=== PATIENT | female | born 1955 | race Caucasian/White ===

== ENCOUNTER 2017-08-07 11:19 | Inpatient (IN) | payer MEDICAID ==
[~2017-08-07] VITALS: Ht 167.6 cm; Wt 105.3 kg
--- NOTE | 2017-08-07 11:19 | NUR ---
Patient was BIBA and taken to bed 06 via gurney per EMS.
--- NOTE | 2017-08-07 11:20 | NUR ---
SECURITY at bedside.
[2017-08-07 11:24] VITALS: BP 143/90
[2017-08-07] MEDS ORDERED: ONDANSETRON 4 MG ODT PO ONE (11:25)
--- NOTE | 2017-08-07 11:26 | NUR ---
PT BIBA FOR SUICIDAL IDEATION, TOOK 4 600MG IBU AND ATTEMPTED TO CUT MANPREET WRISTS. MEDIC STATES PT WAS RECOVERING ALCOHOLIC AND BEGAN DRINKING AGAIN LAST NOC. PT ON 5150 HOLD PER [facility]OPEN WOUND TO R ABDOMEN & MULTIPLE SUPERFICIAL CUT WOUND TO L WRIST. HX ETOH, DEPRESSION, HYPOTHYROIDISM.AAOX4 WITH EVEN AND STEADY GAIT; LUNGS CLEAR BL; PT DENIES ANY FEVER, CP, SOB, OR COUGH AT THIS TIME; PATIENT STATES PAIN OF 0/10 AT THIS TIME; PATIENT POSITIONED FOR COMFORT; HOB ELEVATED; BEDRAILS UP X2; BED DOWN. ER MADE AWARE OF PT STATUS. Addendum: 08/07/17 at 1416 by MED1 OLD OPENED WOUND TO R ABDOMEN.
--- NOTE | 2017-08-07 11:26 | NUR ---
Note undone in EDM - 08/07/17 at 1411 by MED1 PT BIBA FOR SUICIDAL IDEATION, TOOK 4 600MG IBU AND ATTEMPTED TO CUT MANPREET WRISTS. MEDIC STATES PT WAS RECOVERING ALCOHOLIC AND BEGAN DRINKING AGAIN LAST NOC. PT ON 5150 HOLD PER [facility]OPEN WOUND TO R ABDOMEN & MULTIPLE SUPERFICIAL CUT WOUND TO MANPREET WRIST. HX ETOH, DEPRESSION, HYPOTHYROIDISM.AAOX4 WITH EVEN AND STEADY GAIT; LUNGS CLEAR BL; PT DENIES ANY FEVER, CP, SOB, OR COUGH AT THIS TIME; PATIENT STATES PAIN OF 0/10 AT THIS TIME; PATIENT POSITIONED FOR COMFORT; HOB ELEVATED; BEDRAILS UP X2; BED DOWN. ER MD MADE AWARE OF PT STATUS.
--- NOTE | 2017-08-07 11:32 | NUR ---
LAB AT BEDSIDE
[2017-08-07 11:46] LABS: HEMATOCRIT 39.4 % (36-48); MEAN CORPUSCULAR HEMOGLOBIN 28 pg (27-31); MEAN CORPUSCULAR HGB CONC 33 g/dL (33-37); MEAN CORPUSCULAR VOLUME 86 fL (80-94); PLATELET COUNT (AUTO) 228 K/uL (140-450); RED BLOOD CELL COUNT(AUTO) 4.59 MIL/uL (4.20-5.40); RED CELL DISTRIBUTION WIDTH 13.7 % (11.6-13.7); WHITE BLOOD COUNT (AUTO) 4.7 K/uL (4.8-10.8)
[2017-08-07 12:00] LABS: LYMPHOCYTES % (MANUAL) 33 % (20-46); MONOCYTES % (MANUAL) 3 % (5-12)
[2017-08-07 12:02] LABS: ANION GAP 13.7 (8-16); CARBON DIOXIDE 28.6 mmol/L (21-32); CHLORIDE 104 mmol/L (98-107); CREATININE 0.9 mg/dL (0.6-1.3); GFR ARICAN-AMERICAN 82 mL/min (>90); GLUCOSE 122 mg/dL (74-106); POTASSIUM 3.3 mmol/L (3.5-5.1); SALICYLATE < 2.8 mg/dL (2.8-20.0); SODIUM SERUM 143 mmol/L (136-145); UREA NITROGEN, BLOOD 10 mg/dL (7-18)
[2017-08-07 12:19] LABS: ALBUMIN 3.9 g/dL (3.4-5.0); ASPARTATE AMINOTRANSFERASE 29 U/L (15-37); TOTAL BILIRUBIN 0.8 mg/dL (0.0-1.0)
[2017-08-07 12:37] LABS: ACETAMINOPHEN < 0.5 ug/ml (10-30)
--- NOTE | 2017-08-07 12:38 | NUR ---
# 14 FR Ruiz catheter with 10 ml utilizing sterile technique. Immediate return of 50 ml YELLOW urine noted. Bedside drainage bag placed below level of bladder. Urine sample collected and sent to lab. Pt tolerated procedure.
[2017-08-07 12:48] LABS: CKMB RELATIVE INDEX 1.5 (0.0-2.5); CREATINE KINASE MB 8.2 ng/mL (0-3.6)
[2017-08-07 13:09] LABS: APPEARANCE,URINE CLEAR (CLEAR); BILIRUBIN,URINE NEGATIVE (NEGATIVE); BLOOD, URINE NEGATIVE (NEGATIVE); COLOR,URINE YELLOW (YELLOW); LEUKOCYTE ESTERASE ,URINE NEGATIVE (NEGATIVE); NITRITE, URINE NEGATIVE (NEGATIVE); PH,URINE 6.5 (5.0-9.0); UGLUCOSE NEGATIVE (NEGATIVE)
--- NOTE | 2017-08-07 13:16 | NUR ---
Dr. Matos evaluating patient at bedside.
[2017-08-07 13:20] LABS: RBC,URINE 0-5 (RARE) /HPF (0-5)
[2017-08-07 13:21] LABS: WBC,URINE 0-5 (RARE) /HPF (0-5)
[2017-08-07 13:25] LABS: BARBITURATE, URINE NEG. ng/ml (NEG <=200); BENZODIAZEPINE, URINE NEG. ng/mL (NEG <=200); CANNABINOID, URINE NEG. ng/mL (NEG <=50); COCAINE, URINE NEG. ng/mL (NEG <=300); OPIATE, URINE NEG. ng/mL (NEG <=2000); PHENCYCLIDINE SCREEN,URINE NEG. ng/mL (NEG <=25)
[2017-08-07] MEDS ORDERED: HYDROcodone/APAP 7.5/325 MG 1 TAB PO PRN (13:35)
[2017-08-07] MEDS ORDERED: ACETAMINOPHEN 325 MG TAB PO PRN (13:35)
[2017-08-07] MEDS ORDERED: ONDANSETRON 4 MG/2 ML VIAL IVP PRN (13:35)
[2017-08-07] MEDS ORDERED: KETOROLAC 30 MG/ML VIAL IVP ONE (13:55)
--- NOTE | 2017-08-07 13:55 | NUR ---
PT C/O ABDOMINAL PAIN. NOTIFIED DR JOHNS.
[2017-08-07 14:02] LABS: PROTHROMBIN TIME 10.4 secs (10.8-13.4)
--- NOTE | 2017-08-07 14:05 | NUR ---
PT STS " I WANT SOMETHING FOR ANXIETY". NOTIFIED DR JOHNS.
[2017-08-07] MEDS ORDERED: LORazepam 2 MG/ML VIAL IVP ONE (14:10)
[2017-08-07 14:14] LABS: CHOL/HDL RATIO 4.2 (1-4.5); FREE T4 (FREE THYROXINE) 0.83 ng/dL (0.76-1.46); THYROID STIMULATING HORMONE 10.46 uIU/mL (0.34-3.74)
--- NOTE | 2017-08-07 14:34 | NUR ---
Patient will be admitted to care of DR TORIBIO. Admited to TELE. Will go to [id number]. Belongings list completed. Report to RN MEMI.
[2017-08-07 17:12] VITALS: BP 128/73
[2017-08-07] MEDS ORDERED: INSULIN LISPRO SLIDING SCALE 100 UNITS/ML VIAL SUBQ PRN (17:25)
[2017-08-07] MEDS ORDERED: DEXTROSE 50% 50 ML SYR IVP PRN (17:25)
[2017-08-07] MEDS ORDERED: NITROGLYCERIN 0.4 MG TAB SL PRN (17:30)
[2017-08-07] MEDS: NACL 0.9% 1,000 ML IV SCH (17:51)
[2017-08-07] MEDS ORDERED: CALCIUM ACETATE 667 MG TAB PO SCH (18:00)
[2017-08-07] MEDS: LORazepam 2 MG/ML VIAL IVP PRN (18:11)
--- NOTE | 2017-08-07 18:58 | NUR ---
DAUGHTERS LILY AND DANGELO AT BEDSIDE, THEY REQUESTS TO BE CALLED WHEN PSYCH DOCTOR IS HERE TO SEE PT. ACCORDING TO THE DAUGHTERS, PT HAS HX OF LYING TO GET OUT OF PSYCHIATRIC FACILITY TO ATTEMPT SUICIDE, THEY WOULD LIKE PSYCH TO BE AWARE OF PREVIOUS ATTEMPTS TO GET OUT OF PSYCH TREATMENT SO SHE CAN GO HOME TO KILL HERSELF. LILY [phone], DANGELO [phone].
--- NOTE | 2017-08-07 19:40 | NUR ---
REPORT GIVEN TO CISO NURSE, PT IN STABLE CONDITION.
--- NOTE | 2017-08-07 19:41 | NUR ---
REPORT RECEIVED FROM DAY NURSE. PT IN STABLE CONDITION. NO S/S OF DISTRESS NOTED. NO SUICIDAL IDEATION OR PLAN AT THIS TIME. PT AAOX4. PT IS ON RA, IV TO L FA 20 G PATENT AND INTACT, INFUSING WELL. SUPERFICIAL ABRASION NOTED ON L WRIST AND OPEN WOUND ON RIGHT ABD. RESPIRATIONS ARE EVEN AND UNLABORED, BOWEL SOUNDS PRESENT. INITIAL ASSESSMENT COMPLETED. PLAN OF CARE DISCUSSED WITH PT, VERBALIZED UNDERSTANDING. ALL SAFETY PRECAUTIONS MET, CALL LIGHT WITHIN REACH, WILL CONTINUE TO MONITOR Addendum: 08/08/17 at 0139 by Barbara Medina RN PT HAS SITTER IN PLACE
[2017-08-07] MEDS ORDERED: POTASSIUM CHLORIDE 20% 40 MEQ/15 ML UDC PO SCH (19:50)
--- NOTE | 2017-08-07 19:50 | NUR ---
MADE DR CABRERA AWARE OF PTS POTASSIUM 3.3 WILL CARRY OUT ORDERS. ALSO MADE DR. CABRERA AWARE OF WOUND ON RIGHT ABDOMEN, ORDERS TO BE CARRIED OUT
[2017-08-07 20:00] VITALS: BP 142/72
[2017-08-07] MEDS ORDERED: LORazepam 1 MG TAB PO SCH (21:00)
[2017-08-07] MEDS: DOCUSATE SODIUM 100 MG GELCAP PO SCH (21:06)
[2017-08-07] MEDS: ATORVASTATIN 20 MG TAB PO SCH (21:06)
[2017-08-07] MEDS: METOPROLOL 25 MG TAB PO SCH (21:06)
[2017-08-07] MEDS: BLOOD GLUCOSE MONITORING 1 DEV DEV FS SCH (21:12)
[2017-08-07] MEDS ORDERED: ceFAZolin 1,000 MG VIAL ONE (21:25)
--- NOTE | 2017-08-07 22:30 | NUR ---
PT RECEIVED US OF ABDOMEN TO RULE OUT ABSCESS
[2017-08-07] MEDS ORDERED: POTASSIUM CHLORIDE 10 MEQ TABER PO SCH (23:05)
--- NOTE | 2017-08-07 23:30 | NUR ---
PT RESTING COMFORTABLY IN BED. NO SUICIDAL IDEATION AT THIS TIME, NO PLAN. ALL SAFETY PRECAUTIONS MET, CALL LIGHT WITHIN REACH, WILL CONTINUE TO MONITOR
[2017-08-08] VITALS: BP 137/75
--- NOTE | 2017-08-08 01:38 | NUR ---
PT RESTING COMFORTABLY IN BED, NO SUICIDAL IDEATION OR PLAN AT THIS TIME. ALL SAFETY PRECAUTIONS MET, CALL LIGHT WITHIN REACH, WILL CONTINUE TO MONITOR. PT HAS SITTER IN PLACE
--- NOTE | 2017-08-08 03:30 | NUR ---
NO SUICIDAL IDEATION AT THIS TIME, NO PLAN. PT RESTING COMFORTABLY IN BED. ALL SAFETY PRECAUTIONS MET, CALL LIGHT WITHIN REACH, WILL CONTINUE TO MONITOR
[2017-08-08 04:00] VITALS: BP 139/92
[2017-08-08] MEDS: CLINDAMYCIN 600 MG in DEXTROSE 5% 50 ML IV SCH ×3 (05:04→20:51)
[2017-08-08] MEDS ORDERED: CLINDAMYCIN 600 MG/4 ML VIAL ONE (05:11)
[2017-08-08] MEDS: LEVOTHYROXINE 0.075 MG TAB PO SCH (05:40)
[2017-08-08] MEDS: LORazepam 2 MG/ML VIAL IVP PRN ×3 (05:40→18:10)
[2017-08-08 05:56] LABS: BASOPHILS # (AUTO) 0.2 K/uL (0.00-0.22); BASOPHILS % (AUTO) 4.2 % (0.0-2.0); EOSINOPHILS # (AUTO) 0.1 K/uL (0-0.4); EOSINOPHILS % (AUTO) 1.1 % (0.0-4.0); HEMATOCRIT 37.1 % (36-48); HEMOGLOBIN 12.3 g/dL (12.0-16.0); LYMPHOCYTES # (AUTO) 1.3 K/uL (2.5-16.5); LYMPHOCYTES % (AUTO) 24.8 % (20.5-51.1); MEAN CORPUSCULAR HEMOGLOBIN 29 pg (27-31); MEAN CORPUSCULAR HGB CONC 33 g/dL (33-37); MEAN CORPUSCULAR VOLUME 87 fL (80-94); MONOCYTES # (AUTO) 0.5 K/uL (0.8-1.0); MONOCYTES % (AUTO) 9.7 % (1.7-9.3); NEUTROPHILS % (AUTO) 60.2 % (42.2-75.2); PLATELET COUNT (AUTO) 173 K/uL (140-450); RED BLOOD CELL COUNT(AUTO) 4.29 MIL/uL (4.20-5.40); RED CELL DISTRIBUTION WIDTH 13.7 % (11.6-13.7); WHITE BLOOD COUNT (AUTO) 5.1 K/uL (4.8-10.8)
[2017-08-08 06:18] LABS: ANION GAP 7.9 (8-16); CARBON DIOXIDE 32.4 mmol/L (21-32); CREATININE 0.9 mg/dL (0.6-1.3); POTASSIUM 4.3 mmol/L (3.5-5.1)
[2017-08-08] MEDS: BLOOD GLUCOSE MONITORING 1 DEV DEV FS SCH ×4 (06:36→20:50)
--- NOTE | 2017-08-08 07:16 | NUR ---
GAVE REPORT TO RAIZA RN AT THE BEDSIDE FOR CONTINUITY OF CARE, PT IN STABLE CONDITION. NO S/S OF DISTRESS NOTED.
--- NOTE | 2017-08-08 07:20 | NUR ---
REPORT RECEIVED FROM MANAGER STUDIO EULA RN, PT SLEEPING QUIETLY, RESP EVEN UNLABORED ON ROOM AIR, AROUSES EASILY, DENIES PAIN OR DISCOMFORT, PLAN OF CARE DISCUSSED, PT DENIES ANY QUESTION, PT REMAINS ON REHAB PHYSICIAN, 1:1 SAFETY WATCH AT BEDSIDE, WILL CONTINUE TO MONITOR.
[2017-08-08 08:00] VITALS: BP 138/86
[2017-08-08] MEDS: LACTOBACILLUS RHAMNOSUS GG 1 EACH CAP PO SCH (08:35)
[2017-08-08] MEDS: CALCIUM ACETATE 667 MG TAB PO SCH (08:35)
[2017-08-08] MEDS: metFORMIN 500 MG TAB PO SCH ×2 (08:35→18:06)
[2017-08-08] MEDS: DOCUSATE SODIUM 100 MG GELCAP PO SCH ×2 (08:35→20:51)
[2017-08-08] MEDS: LISINOPRIL 20 MG TAB PO SCH (08:35)
[2017-08-08] MEDS: ASPIRIN 81 MG TAB.CHEW PO SCH (08:35)
[2017-08-08] MEDS: NYSTATIN 500 MU/5 ML UDC PO SCH ×4 (08:36→20:51)
[2017-08-08] MEDS: FOLIC ACID 1 MG TAB PO SCH (08:36)
--- NOTE | 2017-08-08 08:40 | NUR ---
DUE MEDICATION GIVEN, PT EARLINE WELL, PT TEARFUL, STATES SHE FEELS ANXIOUS, TREMORS NOTED IN OUT STRETCHED HANDS, DR SALINAS MADE AWARE, PT ASKS IF HER FAMILY HAS TRIED TO CONTACT HER, USE OF TELEPHONE AND DAUGHTERS PHONE NUMBERS OFFERED BUT PT DECLINED, PT INFORMED THAT PSYCH WILL COME EVALUATE THIS AFTERNOON PER DR PIZARRO'S OFFICE. PT REMAINS ON PUBLIC WORKS SUPERVISOR AND 1:1 WATCH, WILL CONTINUE TO MONITOR.
[2017-08-08] MEDS ORDERED: LISINOPRIL 20 MG TAB PO SCH (09:00)
[2017-08-08] MEDS ORDERED: LISINOPRIL 5 MG TAB PO SCH (09:00)
[2017-08-08] MEDS ORDERED: PANTOPRAZOLE 40 MG INJ VIAL IVP SCH (09:00)
--- NOTE | 2017-08-08 09:14 | NUR ---
PATIENT HAS BEEN SCREENED AND CATEGORIZED MODERATE NUTRITION RISK. PATIENT WILL BE SEEN WITHIN 3-5 DAYS OF ADMISSION. 08/10/17-08/12/[address]
--- NOTE | 2017-08-08 09:40 | NUR ---
PT UP OUT OF BED, AMBULATED WITH SLOW STEADY GAIT, MOVED TO ROOM 109, UPON SITTING DOWN TO BED IN 109, PT C/O DIZZINESS, PT RE-ORIENTED TO ROOM 109, BED LOCKED IN LOW POSITION, SIDE RAILS UP, PT REMAINS ON 1:1 WATCH. WILL CONTINUE TO MONITOR.
[2017-08-08] MEDS: THIAMINE 100 MG TAB PO SCH (09:44)
[2017-08-08] MEDS: MULTIVITAMIN 1 TAB PO SCH (09:44)
[2017-08-08] MEDS: PANTOPRAZOLE 40 MG TABEC PO SCH (09:44)
[2017-08-08] MEDS: METOPROLOL 25 MG TAB PO SCH (09:45)
[2017-08-08] MEDS: NACL 0.9% 1,000 ML IV SCH (09:46)
--- NOTE | 2017-08-08 10:01 | NUR ---
CM AT BEDSIDE
--- NOTE | 2017-08-08 10:48 | NUR ---
DAUGHTER AT BEDSIDE.
--- NOTE | 2017-08-08 11:13 | NUR ---
ECHOCARDIOGRAM AT BEDSIDE.
[2017-08-08 12:00] VITALS: BP 147/80
[2017-08-08] MEDS: LORazepam 1 MG TAB PO SCH ×2 (12:11→20:51)
--- NOTE | 2017-08-08 12:13 | NUR ---
DUE MEDS GIVEN, PT EARLINE WELL, PT REMAINS ON MOBILE LAB TECHNICIAN, 1:1 SITTER AT BEDSIDE WILL CONTINUE TO MONITOR.
--- NOTE | 2017-08-08 12:30 | NUR ---
LEE DC'D PER ORDER, 9.5ML WATER REMOVED FROM BALLOON, CATH TIP INTACT, PT EARLINE WELL, 300ML ORANGE COLOR URINE DRAINED.
--- NOTE | 2017-08-08 13:29 | NUR ---
PT UP OUT OF BED AMBULATED TO BATHROOM, SPONTANEOUS VOID WITHOUT PROBLEM, PT C/O FEELING ANXIOUS, PRN DOSE OF ATIVAN GIVEN AT THIS TIME, PT DENIES ANY OTHER IMMEDIATE NEEDS, WILL CONTINUE TO MONITOR.
[2017-08-08 16:00] VITALS: BP 140/90
--- NOTE | 2017-08-08 16:30 | NUR ---
VITALS STABLE, BED SIDE GLUCOSE 127, NO INSULIN NEEDED PER SLIDING SCALE, PT SITTING UP TALKING TO STAFF, DENIES PAIN OR DISCOMFORT, PT NOW MED SURGE STATUS, REMAINS ON 1:1 SITTER, AWAITING PSYCH CONSULT, PLAN DISCUSSED WITH PATIENT, PT VERBALIZED UNDERSTANDING, WILL CONTINUE TO MONITOR.
--- NOTE | 2017-08-08 17:30 | NUR ---
FAMILY AT BEDSIDE, DR SÁNCHEZ (PSYCH) AT BEDSIDE FOR EVAL.
--- NOTE | 2017-08-08 18:10 | NUR ---
PT TEARFUL TALKING TO DAUGHTERS, STATES SHE FEELS ANXIOUS, PRN ATIVAN GIVEN AT THIS TIME, WILL CONTINUE TO MONITOR.
--- NOTE | 2017-08-08 19:29 | NUR ---
REPORT GIVEN TO FEEDER DRIVER NURSE, PT IN STABLE CONDITION.
--- NOTE | 2017-08-08 19:30 | NUR ---
PATIENT REPORT RECEIVED FROM MORNING NURSE AT BEDSIDE. PATIENT IS AWAKE, ALERT AND ORIENTED. PATIENT'S DAUGHTERS AT BEDSIDE. 1:1 SITTER PRESENT. NO SIGNS AND SYMPTOMS OF DISTRESS NOTED. NO COMPLAINTS OF PAIN AT THIS TIME. IV SITE NOTED ON LEFT AC, IV SITE IS ASYMPTOMATIC, INTACT, PATENT. IVF INFUSING WELL. BED IN LOWEST POSITION, SIDE RAILS UP AND CALL LIGHT WITHIN REACH. WILL CONTINUE TO MONITOR.
[2017-08-08 20:30] VITALS: BP 143/90
--- NOTE | 2017-08-08 20:40 | NUR ---
PATIENT REPORT ENDORSED TO ROSI. PATIENT IS IN STABLE CONDITION.
--- NOTE | 2017-08-08 20:41 | NUR ---
RECEIVED REPORT FROM PREVIOUS NIGHT NURSE FOR CONTINUATION OF CARE. PT RESTING IN BED, AOX4, HEBREW-SPEAKING, ABLE TO UNDERSTAND AND SPEAK SOME LAO, AMBULATORY, ABLE TO VERBALIZE NEEDS. PT DENIES CHEST PAIN, SOB OR S/S OF ACUTE DISTRESS. SUICIDE RISK ASSESSED, 1:1 SITTER AT BEDSIDE WITH CLOSE MONITORING. IV ACCESS ASYMPTOMATIC, PATENT AND INTACT. IVF INFUSING WELL. DISCUSSED AND REVIEWED PLAN OF CARE WITH PT. PT STATED "OK." WILL CONTINUE WITH CONSTANT REINFORCEMENT. ALL NEEDS MET. 1:1 SITTER ENSURED, SURROUNDINGS CHECKED, SAFETY MEASURES ENSURED. CALL LIGHT WITHIN REACH. WILL CONTINUE TO MONITOR.
[2017-08-08] MEDS: ATORVASTATIN 20 MG TAB PO SCH (20:51)
--- NOTE | 2017-08-08 20:56 | NUR ---
BLOOD GLUCOSE, 140. NO INSULIN COVERAGE NEEDED. EVENING SNACK GIVEN. ADMINISTERED DUE MEDS WITH EDUCATION. PT STATED "OK." WILL CONTINUE WITH CONSTANT REINFORCEMENT. ALL NEEDS MET. IVPB INFUSING WELL. 1:1 SITTER WITH CLOSE MONITORING AT BEDSIDE. SAFETY MEASURES ENSURED. CALL LIGHT WITHIN REACH. WILL CONTINUE TO MONITOR.
--- NOTE | 2017-08-08 23:50 | NUR ---
PT SLEEPING COMFORTABLY, PT AROUSABLE TO NAME, NO S/S OF ACUTE DISTRESS. ALL NEEDS MET. IVF INFUSING WELL. SAFETY MEASURES ENSURED. CALL LIGHT WITHIN REACH. WILL CONTINUE TO MONITOR.
[2017-08-09] VITALS: BP 128/78
--- NOTE | 2017-08-09 01:15 | NUR ---
PT SLEEPING COMFORTABLY, NO S/S OF ACUTE DISTRESS. DRESSING TO RIGHT ABD WITH SEROSANGUINEOUS DRAINAGE. WOUND CLEANSED WITH NS AND GAUZE, COVERED WITH COMPOSITE DRESSING. PT C/O SLIGHT TENDERNESS, PT TOLERATED WELL. ALL NEEDS MET. IVF INFUSING WELL. 1:1 SITTER WITH CLOSE MONITORING MAINTAINED AT BEDSIDE, SAFETY MEASURES ENSURED. WILL CONTINUE TO MONITOR.
[2017-08-09] MEDS: LORazepam 1 MG TAB PO SCH ×3 (04:13→21:07)
[2017-08-09] MEDS: CLINDAMYCIN 600 MG in DEXTROSE 5% 50 ML IV SCH ×3 (04:13→21:20)
--- NOTE | 2017-08-09 04:13 | NUR ---
PT HELPED TO THE RESTROOM BY MACHINE TRIMMER, PT ABLE TO AMBULATE WITH STANDBY ASSIST. ADMINISTERED DUE MEDS WITH EDUCATION. PT STATED "OK," TOLERATED MEDS WELL. ALL NEEDS MET. IVPB INFUSING WELL. 1:1 SITTER AT BEDSIDE WITH CLOSE MONITORING. SAFETY MEASURES ENSURED. CALL LIGHT WITHIN REACH. WILL CONTINUE TO MONITOR.
[2017-08-09] MEDS: NACL 0.9% 1,000 ML IV SCH (04:49)
[2017-08-09] MEDS: LEVOTHYROXINE 0.075 MG TAB PO SCH (05:56)
[2017-08-09] MEDS: BLOOD GLUCOSE MONITORING 1 DEV DEV FS SCH ×4 (05:57→21:02)
--- NOTE | 2017-08-09 05:58 | NUR ---
PT SLEEPING COMFORTABLY, AROUSABLE TO NAME, NO S/S OF ACUTE DISTRESS. FITNESS CLUB MANAGER AT BEDSIDE TO DRAW BLOOD BLOOD GLUCOSE, 98. NO INSULIN COVERAGE NEEDED. ADMINISTERED DUE MED WITH EDUCATION. PT STATED "OK," TOLERATED MED WELL. ALL NEEDS MET. 1:1 SITTER AT BEDSIDE WITH CLOSE MONITORING, SAFETY MEASURES ENSURED. WILL CONTINUE TO MONITOR.
[2017-08-09 06:57] LABS: BASOPHILS # (AUTO) 0.2 K/uL (0.00-0.22); BASOPHILS % (AUTO) 4.8 % (0.0-2.0); EOSINOPHILS # (AUTO) 0.2 K/uL (0-0.4); EOSINOPHILS % (AUTO) 3.3 % (0.0-4.0); HEMATOCRIT 35.3 % (36-48); HEMOGLOBIN 11.6 g/dL (12.0-16.0); LYMPHOCYTES # (AUTO) 1.3 K/uL (2.5-16.5); LYMPHOCYTES % (AUTO) 27.3 % (20.5-51.1); MEAN CORPUSCULAR HEMOGLOBIN 28 pg (27-31); MEAN CORPUSCULAR HGB CONC 33 g/dL (33-37); MEAN CORPUSCULAR VOLUME 86 fL (80-94); MONOCYTES # (AUTO) 0.5 K/uL (0.8-1.0); MONOCYTES % (AUTO) 11.1 % (1.7-9.3); NEUTROPHILS # (AUTO) 2.5 K/uL (1.8-7.7); NEUTROPHILS % (AUTO) 53.5 % (42.2-75.2); PLATELET COUNT (AUTO) 169 K/uL (140-450); RED BLOOD CELL COUNT(AUTO) 4.11 MIL/uL (4.20-5.40); RED CELL DISTRIBUTION WIDTH 13.6 % (11.6-13.7); WHITE BLOOD COUNT (AUTO) 4.7 K/uL (4.8-10.8)
--- NOTE | 2017-08-09 07:15 | NUR ---
ENDORSED PLAN OF CARE TO AM NURSE. CONDITION STABLE.
--- NOTE | 2017-08-09 07:16 | NUR ---
RECEIVED REPORT FROM CNC MANAGER NURSE ROSI AT BEDSIDE FOR CONTINUITY OF CARE. PT IS AWAKE AND ORIENTED. INTRODUCED SELF AND UPDATED BOARD. IV ON LEFT FA D/C'D. EDEMA NOTED AROUND IV SITE. IV STARTED ON RIGHT WRIST 24G BY ROSI. IV INFUSING NS 1,000ML BAG AT 50ML/HR. PT IS SITTING UP EATING BREAKFAST RIGHT NOW. NO COMPLAINTS AT THIS TIME. SITTER IS AT BEDSIDE. CONSTANT MONITORING. BED IN LOW POSITION, WHEELS LOCKED.
[2017-08-09 07:18] LABS: ANION GAP 8.5 (8-16); CARBON DIOXIDE 31.2 mmol/L (21-32); CREATININE 0.9 mg/dL (0.6-1.3); POTASSIUM 3.7 mmol/L (3.5-5.1)
[2017-08-09 08:00] VITALS: BP 119/75
[2017-08-09] MEDS: CALCIUM ACETATE 667 MG TAB PO SCH (08:00)
[2017-08-09] MEDS: MULTIVITAMIN 1 TAB PO SCH (09:03)
[2017-08-09] MEDS: LISINOPRIL 20 MG TAB PO SCH (09:04)
[2017-08-09] MEDS: QUEtiapine FUMARATE 25 MG TAB PO SCH ×2 (09:05→21:07)
[2017-08-09] MEDS: NYSTATIN 500 MU/5 ML UDC PO SCH ×4 (09:06→21:07)
[2017-08-09] MEDS: PANTOPRAZOLE 40 MG TABEC PO SCH (09:07)
[2017-08-09] MEDS: CALCIUM CARB/VIT-D 500 MG/200 IU 1 TAB PO SCH (09:07)
[2017-08-09] MEDS: metFORMIN 500 MG TAB PO SCH ×2 (09:08→17:08)
[2017-08-09] MEDS: LACTOBACILLUS RHAMNOSUS GG 1 EACH CAP PO SCH (09:09)
[2017-08-09] MEDS: ASPIRIN 81 MG TAB.CHEW PO SCH (09:09)
[2017-08-09] MEDS: THIAMINE 100 MG TAB PO SCH (09:10)
[2017-08-09] MEDS: DOCUSATE SODIUM 100 MG GELCAP PO SCH ×2 (09:11→21:07)
[2017-08-09] MEDS: FOLIC ACID 1 MG TAB PO SCH (09:11)
[2017-08-09] MEDS: LORazepam 2 MG/ML VIAL IVP PRN ×2 (10:40→10:44)
--- NOTE | 2017-08-09 10:40 | NUR ---
PT WAS STATING SHE WAS FEELING ANXIOUS. NON-ADMIN ATIVAN PRN DUE TO PT SLEEPING. INFORMED PT THAT SHE CAN GET SCHEDULED ATIVAN AT 1PM. PT AGREED AND CONTINUES TO SLEEP IN BED. SITTER AT BEDSIDE. WILL CONTINUE CLOSE MONITORING.
--- NOTE | 2017-08-09 11:37 | NUR ---
Social Service Note: I faxed inquiry to [facility], fax number , phone number .
--- NOTE | 2017-08-09 12:21 | NUR ---
ADMINISTERED CLEOCIN, NYSTATIN AND ATIVAN. PT TOLERATED MEDS WELL. PT GOT UP TO USE BATHROOM ASSISTED BY SITTER. PT IS NOW SITTING UP EATING LUNCH. SITTER AT BEDSIDE. CONSTANT OBSERVATION.
--- NOTE | 2017-08-09 14:48 | NUR ---
Social Service Note: I called [facility], fax number , phone number and spoke with Dev. Per Art, he has other inquiries to review, has not had the chance to review inquiry, he stated I should call him back in 1 hour for an update. Addendum: 08/09/17 at 1453 by Mallory RAMOS I called [facility] and spoke with Elza. Per Elza, no beds available at this time. Addendum: 08/09/17 at 1454 by Mallory Velázquez I called [facility] and spoke with Eli, per Eli, no beds available at this time. Addendum: 08/09/17 at 1457 by Mallory Velázquez SS I called [facility] and spoke with manuel Grider.
--- NOTE | 2017-08-09 14:58 | NUR ---
PT'S DAUGHTER, DANGELO IS AT BEDSIDE. UPDATED HER ON PT STATUS AND PLAN TO TRANSFER TO PSYCH FACILITY ONCE PLACEMENT IS MADE. PT IS RESTING IN BED RIGHT NOW. NO SIGNS OF DISTRESS. SITTER IS AT BEDSIDE WILL CONTINUE CLOSE MONITORING.
--- NOTE | 2017-08-09 15:44 | NUR ---
Social Service Note: Per Art from [facility], fax number , phone number he is working on finding patient inpatient psych placement. He stated he would call our nursing staff once he finds placement, provided him with nurses station's phone number.
[2017-08-09 16:00] VITALS: BP 115/74
--- NOTE | 2017-08-09 19:30 | NUR ---
ENDORSED PT TO AUTOMOTIVE SERVICE PORTER NURSE JUAN AT BEDSIDE FOR CONTINUITY OF CARE. SITTER AT BEDSIDE. PT IN STABLE CONDITION.
--- NOTE | 2017-08-09 19:31 | NUR ---
PATIENT IS CURRENTLY RESTING IN BED AWAKE ALERT ORIENTED X3 WITH PERIODS OF FORGETFULNESS AND CONFUSION. PATIENT HAS IV ACCESS TO RIGHT HAND g#24 AND I FLUSHED IT WITH NORMAL SALINE AND ITS CURRENTLY PATENT AND SECURED WELL. PATIENT SKIN WAS CHECKED SHE HAS A DRESSING TO THE RIGHT LOWER ABD QUADRANT AND HAS SMALL AMOUNT OF DRAINAGE NOTED TO THE DRESSING.EDUCATION GIVEN TO THE PATIENT TO NOT TOUCH THE DRESSING OR REMOVE THE DRESSING PATIENT VERBALIZES UNDERSTANDING BUT NEEDS REINFORCEMENT PATIENT IS FORGETFUL. PATIENT FEET WERE CHECKED SOME DRYNESS NOTED.PATIENT HAS A GREENISH DISCOLORATION TO HER RT BUTTOCK AND SHE HAS A DRESSING TO HER LT WRIST WERE SHE TRIED TO CUT HERSELF.PATIENT GAIT IS UNSTEADY SHE NEEDS TO BE MONITORED AND ASSISTED WHEN SHE WALKS TO THE BATHROOM AND BACK TO BED.FALL PRECAUTIONS IMPLEMENTED WELL.NEEDS MET WILL CONTINUE TO MONITOR.
--- NOTE | 2017-08-09 19:45 | NUR ---
PATIENT ATE MOST OF HER DINNER TRAY TONIGHT AND DENIES FEELING ANY NAUSEA. PATIENT IS CALM AND COOPERATIVE ISN'T VOICING TO HARM HERSELF OR OTHERS OR HEARING VOICES. PATIENT IS FORGETFUL NEEDS CONSTANT REINFORCEMENT. PATIENT HAS PERIODS WHEN SHE WAKES UP TALKING ABOUT SOMETHING AND PATIENT STATES,"IM DREAMING."PATIENT GETS CONFUSED AT TIMES TOO SHE THINKS SHE IS SOMEWHERE ELSE AND HAS NO NOTION OF THE DATE AND TIME.WILL CONTINUE TO MONITOR.
[2017-08-09 20:00] VITALS: BP 108/79
--- NOTE | 2017-08-09 20:00 | NUR ---
Patient's Plan of Care was discussed and reviewed with WELFARE OFFICER: JUAN MADRID
--- NOTE | 2017-08-09 20:10 | NUR ---
PATIENT STATES,"I FEEL ANXIOUS CAN I GET SOME MEDICATION FOR ANXIETY PLEASE I JUST WANT TO BE ABLE TO SLEEP." I EXPLAINED TO THE PATIENT THAT SHE HAS ROUTINE NIGHT TIMES MEDICATION THAT I WILL BE GIVING TO HER SOON. PATIENT CONTINUES TO BE ASSISTED TO THE BATHROOM HER GAIT IS UNSTEADY AND NEEDS TO BE ASSISTED AND MONITORED CLOSELY.HOWEVER PATIENT DOES KNOCK ON THE DOOR WHEN SHE IS READY TO BE ASSISTED BACK TO BED.PATIENT DOESN'T ASK FOR HELP SHE JUST GETS UP AND ATTEMPTS TO WALK TO THE BATHROOM PATIENT EDUCATED AND INSTRUCTED TO ASK FOR ASSISTANCE PATIENT VERBALIZES UNDERSTANDING BUT CONTINUES TO FORGET NEEDS CONSTANT REINFORCEMENT.
--- NOTE | 2017-08-09 20:31 | NUR ---
I ASKED THE PATIENT IF SHE HAS RECEIVED FLU OR PNA VACCINE AND PATIENT SAID,"NO." EDUCATION GIVEN ON THE IMPORTANCE OF TAKING THE VACCINES PATIENT STATES,"NO I DON'T WANT THEM." PATIENT CONTINUES TO BELIEVE THAT SHE WILL GET SICK FROM THE VACCINES AND REFUSES TO HAVE ANY VACCINES EVEN THOUGHT SHE QUALIFIES.
[2017-08-09] MEDS: ATORVASTATIN 20 MG TAB PO SCH (21:07)
--- NOTE | 2017-08-09 21:35 | NUR ---
I BROUGHT PATIENT HER HS SNACK PATIENT REFUSE TO EAT AT THIS TIME PATIENT STATES,"I HAD ATE MY DINNER AND IM NOT HUNGRY RIGHT NOW MAYBE LATER." SO I LEFT HER HS SNACK AT BEDSIDE TABLE FOR NOW.
--- NOTE | 2017-08-09 21:45 | NUR ---
PATIENT CURRENTLY SLEEPING IVF INFUSING WELL IV SITE PATENT.PATIENT IS CURRENTLY CLEAN AND DRY WILL CONTINUE TO MONITOR.
--- NOTE | 2017-08-09 23:15 | NUR ---
PATIENT SAT UP IN BED COMPLAINING OF SEVERE HEARTBURN I CALLED MD CABRERA ABOUT PATIENT'S COMPLAINS AND MD SAID SHE WILL COME TO SEE THE PATIENT.I WALKED THE PATIENT TO THE BATHROOM AND BACK TO BED. NOTICED PATIENT HAS DIFFICULTY WALKING AND I TOLD MD THAT I ASKED THE PATIENT WHY HER LEG HURTS AND PATIENT STATES,"I DON'T KNOW WHAT HAPPENED." I ALSO INFORMED MD OF PATIENT COMPLAINING OF SEVERE HEARTBURN AND MD SAID SHE WILL ORDER SOME MEDICATION TO HELP RELIEVE HER DISCOMFORT. INFORMED THAT PATIENT HAS AN ORDER FOR WOUND EVAL BUT HASN'T BEEN SEEN YET BY ONE AND I ASKED MD CABRERA HOW SHE WANTS THE DRESSING CHANGES TO BE DONE AND SUGGESTED TO MD IF ITS POSSIBLE THAT SHE COULD ORDER DRESSING CHANGES FOR NOW UNTIL SHE IS EVALUATED BY WOUND CARE SO EVERYONE TREATS THE WOUND AND KEEPS THE WOUND CLEAN THE SAME WAY UNTIL THE WOUND CARE NURSE SEES THE PATIENT. SAID SHE WILL PLACE ORDERS WILL CONTINUE TO MONITOR.
[2017-08-09] MEDS ORDERED: LIDOCAINE VISCOUS 2% 20 ML UDC PO ONE (23:20)
[2017-08-09] MEDS ORDERED: DICYCLOMINE HCL LIQUID 10 MG/5 ML UDC PO ONE (23:20)
[2017-08-09] MEDS ORDERED: ALUMINUM HYD/MAG/SIMETHICONE 30 ML UDC PO ONE (23:20)
--- NOTE | 2017-08-09 23:59 | NUR ---
PATIENT RESTING IN BED AT THIS TIME NO SUICIDE ATTEMPT PATIENT CONTINUES TO COOPERATE WELL.AND WENT BACK TO SLEEP IVF INFUSING WELL IV SITE PATENT WILL CONTINUE TO MONITOR.
--- NOTE | 2017-08-10 01:30 | NUR ---
PATIENT TAKEN TO THE BATHROOM AND ASSISTED BACK TO BED CONTINUES TO BE MONITORED.PATIENT IS CALM AND COOPERATIVE ISN'T ATTEMPTING TO HURT STAFF OR HERSELF.
[2017-08-10] MEDS: NACL 0.9% 1,000 ML IV SCH ×2 (01:33→01:39)
--- NOTE | 2017-08-10 01:47 | NUR ---
PATIENT CURRENTLY RESTING IN BED SLEEPING.ENVIRONMENT KEPT SAFE.IVF INFUSING WELL IV SITE PATENT WILL CONTINUE TO MONITOR.
--- NOTE | 2017-08-10 03:30 | NUR ---
PATIENT SLEEPING COMFORTABLY IN BED IN NO DISTRESS.IVF INFUSING WELL.
[2017-08-10] MEDS: CLINDAMYCIN 600 MG in DEXTROSE 5% 50 ML IV SCH ×3 (05:30→20:37)
--- NOTE | 2017-08-10 05:30 | NUR ---
PATIENT CURRENTLY RESTING IN BED NEEDS MET ASSISTED TO THE BATHROOM.WILL CONTINUE TO MONITOR.
[2017-08-10 05:45] VITALS: BP 129/81
[2017-08-10] MEDS: LORazepam 1 MG TAB PO SCH ×3 (05:45→20:37)
[2017-08-10] MEDS: LEVOTHYROXINE 0.075 MG TAB PO SCH (06:00)
[2017-08-10] MEDS: BLOOD GLUCOSE MONITORING 1 DEV DEV FS SCH ×4 (07:00→20:31)
[2017-08-10 07:01] LABS: BASOPHILS # (AUTO) 0.1 K/uL (0.00-0.22); BASOPHILS % (AUTO) 2.6 % (0.0-2.0); EOSINOPHILS # (AUTO) 0.2 K/uL (0-0.4); EOSINOPHILS % (AUTO) 3.6 % (0.0-4.0); HEMATOCRIT 34.3 % (36-48); HEMOGLOBIN 11.2 g/dL (12.0-16.0); LYMPHOCYTES # (AUTO) 1.6 K/uL (2.5-16.5); LYMPHOCYTES % (AUTO) 34.1 % (20.5-51.1); MEAN CORPUSCULAR HEMOGLOBIN 28 pg (27-31); MEAN CORPUSCULAR HGB CONC 33 g/dL (33-37); MEAN CORPUSCULAR VOLUME 86 fL (80-94); MONOCYTES # (AUTO) 0.4 K/uL (0.8-1.0); MONOCYTES % (AUTO) 8.2 % (1.7-9.3); NEUTROPHILS # (AUTO) 2.3 K/uL (1.8-7.7); NEUTROPHILS % (AUTO) 51.5 % (42.2-75.2); PLATELET COUNT (AUTO) 168 K/uL (140-450); RED BLOOD CELL COUNT(AUTO) 3.99 MIL/uL (4.20-5.40); RED CELL DISTRIBUTION WIDTH 13.7 % (11.6-13.7); WHITE BLOOD COUNT (AUTO) 4.6 K/uL (4.8-10.8)
--- NOTE | 2017-08-10 07:01 | NUR ---
MD PIZARRO CAME AND SAW THE PATIENT AND EXAMINED THE PATIENT.PATIENT DOING WELL.IVF INFUSING WELL IV SITE REMAINS PATENT.PATIENT HASN'T VOICED ANY SUICIDAL THOUGHTS OR HASN'T ATTEMPTED TO HURT HERSELF OR STAFF DURING THE NIGHT.PATIENT HAS BEEN CALM AND COOPERATIVE.
--- NOTE | 2017-08-10 07:30 | NUR ---
RECEIVED PT ON BED AAOX4. NO SOB NOTED. NO C/O PAIN AT THIS TIME. IV TO RT WRIST PATENT AND INTACT. CHEST CLEAR. ABDOMEN SOFT, BOWEL SOUNDS PRESENT. NO EDEMA NOTED. DRESSING TO RT ABDOMEN AND LT WRIST DRY AND INTACT. INSTRUCTED PT TO CALL FOR ASSISTANCE, CALL LIGHT WITHIN REACH. PT VERBALIZED UNDERSTANDING. WITH 1:1 SITTER AT THE BEDSIDE. WILL MONITOR FOR SUICIDAL IDEATION.
--- NOTE | 2017-08-10 07:31 | NUR ---
PATIENT CURRENTLY STABLE AND SAFE REPORT ENDORSED TO RN CAPITAN.
[2017-08-10] MEDS: metFORMIN 500 MG TAB PO SCH ×2 (08:00→17:00)
[2017-08-10 08:12] LABS: ANION GAP 9.6 (8-16); CARBON DIOXIDE 31.1 mmol/L (21-32); POTASSIUM 3.7 mmol/L (3.5-5.1)
[2017-08-10 08:29] VITALS: BP 118/71
[2017-08-10] MEDS: CALCIUM ACETATE 667 MG TAB PO SCH (08:48)
[2017-08-10] MEDS: THIAMINE 100 MG TAB PO SCH (08:49)
[2017-08-10] MEDS: LISINOPRIL 20 MG TAB PO SCH (08:49)
[2017-08-10] MEDS: CALCIUM CARB/VIT-D 500 MG/200 IU 1 TAB PO SCH (08:50)
[2017-08-10] MEDS: NYSTATIN 500 MU/5 ML UDC PO SCH ×4 (08:51→20:38)
[2017-08-10] MEDS: LACTOBACILLUS RHAMNOSUS GG 1 EACH CAP PO SCH (08:51)
[2017-08-10] MEDS: PANTOPRAZOLE 40 MG TABEC PO SCH (08:51)
[2017-08-10] MEDS: QUEtiapine FUMARATE 100 MG TAB PO SCH ×2 (08:51→20:38)
[2017-08-10] MEDS: MULTIVITAMIN 1 TAB PO SCH (08:51)
[2017-08-10] MEDS: FOLIC ACID 1 MG TAB PO SCH (08:51)
[2017-08-10] MEDS: ASPIRIN 81 MG TAB.CHEW PO SCH (08:54)
[2017-08-10] MEDS: DOCUSATE SODIUM 100 MG GELCAP PO SCH ×2 (08:55→20:37)
--- NOTE | 2017-08-10 11:00 | NUR ---
FAMILY CAME OVER TO SEE PT. PT STATED TO THE SISTER IN LAW THAT SHE IS SAD RIGHT NOW BUT IS NOT THINKING OF HARMING HERSELF OR OTHERS.
--- NOTE | 2017-08-10 13:30 | NUR ---
DR. SALINAS NOTIFIED REGARDING PT'S MRSA OF ABDOMINAL WOUND, AND NOTIFIED REGARDING THE WOUND DRESSING ORDERS WELL. DR. SALINAS MADE AWARE THAT WOUND CARE NURSE HAS NOT SEEN PT YET.
[2017-08-10 16:00] VITALS: BP 113/71
--- NOTE | 2017-08-10 16:30 | NUR ---
MRSA INFORMATIONS GIVEN TO PT AND PT'S DAUGHTERS, VERBALIZED UNDERSTANDING.
--- NOTE | 2017-08-10 19:10 | NUR ---
PT RESTING. NO SOB NOTED. NO C/O PAIN AT THIS TIME. WILL ENDORSE TO NEXT SHIFT NURSE FOR CONTINUITY OF CARE.
--- NOTE | 2017-08-10 19:35 | NUR ---
RECEIVED REPORT FROM DAY RN. PATIENT RESTING IN BED, NO S/S OF ACUTE DISTRESS NOTED, RESPIRATION EVEN AND UNLABORED, IV PATENT AND INTACT, INFUSING NS AT 50ML/HR. 1:1 SITTER AT BEDSIDE. SAFETY PRECAUTION IN PLACE. WILL CONTINUE TO MONITOR.
[2017-08-10] MEDS: ATORVASTATIN 20 MG TAB PO SCH (20:37)
--- NOTE | 2017-08-10 20:44 | NUR ---
DUE MEDICATION GIVEN, PATIENT TOLERATED WELL. NO S/S OF DISTRESS NOTED, RESPIRATION EVEN AND UNLABORED, 1:1 SITTER AT THE BEDSIDE. WILL CONTINUE TO MONITOR.
--- NOTE | 2017-08-10 22:20 | NUR ---
PATIENT IS SLEEPING, EASY TO AROUSE. NO S/S OF ACUTE DISTRESS NOTED, RESPIRATION EVEN AND UNLABORED. 1:1 SITTER AT BEDSIDE. SAFETY PRECAUTION IN PLACE. WILL CONTINUE TO MONITOR.
[2017-08-11] VITALS: BP 109/68
--- NOTE | 2017-08-11 00:22 | NUR ---
PATIENT IS SLEEPING, EASY TO AROUSE. VITAL SIGNS WITHIN NORMAL RANGE. NO S/S OF ACUTE DISTRESS NOTED, RESPIRATION EVEN AND UNLABORED. 1:1 SITTER AT BEDSIDE. SAFETY PRECAUTION IN PLACE. WILL CONTINUE TO MONITOR.
--- NOTE | 2017-08-11 02:27 | NUR ---
NO CHANGE IN CONDITION. NO S/S OF ACUTE DISTRESS NOTED, RESPIRATION EVEN AND UNLABORED. 1:1 SITTER AT BEDSIDE. SAFETY PRECAUTION IN PLACE. WILL CONTINUE TO MONITOR.
[2017-08-11] MEDS: NACL 0.9% 1,000 ML IV SCH ×2 (03:22→17:00)
[2017-08-11] MEDS: CLINDAMYCIN 600 MG in DEXTROSE 5% 50 ML IV SCH ×2 (04:09→12:50)
--- NOTE | 2017-08-11 04:24 | NUR ---
NO CHANGE IN CONDITION, NO S/S OF ACUTE DISTRESS NOTED, RESPIRATION EVEN AND UNLABORED. 1:1 SITTER AT BEDSIDE. SAFETY PRECAUTION IN PLACE. WILL CONTINUE TO MONITOR.
[2017-08-11] MEDS: LORazepam 1 MG TAB PO SCH ×3 (05:36→20:35)
[2017-08-11] MEDS: LEVOTHYROXINE 0.075 MG TAB PO SCH (05:36)
--- NOTE | 2017-08-11 05:38 | NUR ---
DUE MEDICATION GIVEN, PATIENT TOLERATED WELL. NO S/S OF DISTRESS NOTED, RESPIRATION EVEN AND UNLABORED, 1:1 SITTER AT BEDSIDE. SAFETY MEASURE ENSURED, WILL CONTINUE TO MONITOR.
[2017-08-11 06:16] LABS: HEMATOCRIT 34.4 % (36-48); HEMOGLOBIN 11.1 g/dL (12.0-16.0); MEAN CORPUSCULAR HEMOGLOBIN 28 pg (27-31); MEAN CORPUSCULAR HGB CONC 32 g/dL (33-37); MEAN CORPUSCULAR VOLUME 87 fL (80-94); PLATELET COUNT (AUTO) 169 K/uL (140-450); RED BLOOD CELL COUNT(AUTO) 3.96 MIL/uL (4.20-5.40); RED CELL DISTRIBUTION WIDTH 13.9 % (11.6-13.7); WHITE BLOOD COUNT (AUTO) 4.1 K/uL (4.8-10.8)
[2017-08-11] MEDS: BLOOD GLUCOSE MONITORING 1 DEV DEV FS SCH ×4 (06:32→20:31)
[2017-08-11 06:43] LABS: ANION GAP 8.5 (8-16); CARBON DIOXIDE 30.4 mmol/L (21-32); CREATININE 0.9 mg/dL (0.6-1.3); POTASSIUM 3.9 mmol/L (3.5-5.1)
[2017-08-11 06:51] LABS: MAGNESIUM 1.6 mg/dL (1.8-2.4); PHOSPHORUS 4.5 mg/dL (2.5-4.9)
[2017-08-11 07:04] LABS: EOSINOPHILS % (MANUAL) 6 % (0-4); LYMPHOCYTES % (MANUAL) 40 % (20-46); MONOCYTES % (MANUAL) 6 % (5-12)
--- NOTE | 2017-08-11 07:20 | NUR ---
ENDORSED PLAN OF CARE TO DAY RN DYLAN, PATIENT IS IN STABLE CONDITION. NO S/S OF DISTRESS NOTED.
--- NOTE | 2017-08-11 07:21 | NUR ---
RECEIVED REPORT FROM CHIEF UNDERWRITER NURSE. PATIENT IS LYING IN BED IN STABLE CONDITION, NO DISTRESS NOTED. RESPIRATIONS EVEN, UNLABORED, ON ROOM AIR. DENIES ANY PAIN AT THIS TIME. AAOX4, APPEARS WELL-GROOMED,DENIES ANY INTENTIONS/THOUGHTS TO HARM SELF OR OTHERS, SKIN COLOR APPROPRIATE TO ETHNICITY, WARM TO TOUCH. IV INTACT, PATENT, AND INFUSING. RIGHT ABD WOUND DRESSING DRY AND INTACT. LEFT WRIST ABRASIONS DRESSING INTACT AND DRY. ABLE TO AMBULATE WITH STEADY GAIT TO BATHROOM AND BACK TO BED. LUNGS CTA ALL LOBES. NO PERIPHERAL EDEMA NOTED. PLAN OF CARE REVIEWED WITH PATIENT. PATIENT VERBALIZED UNDERSTANDING. SAFETY MEASURES IN PLACE, 1:1 SITTER AT BEDSIDE, FALL PRECAUTIONS IN PLACE. WILL CONTINUE TO MONITOR PATIENT.
[2017-08-11 08:00] VITALS: BP 117/70
--- NOTE | 2017-08-11 08:00 | NUR ---
[facility] CALLED FOR AN UPDATE , WILL CALL WHEN BED AVAILABLE.
--- NOTE | 2017-08-11 08:30 | NUR ---
WOUND CARE EVALUATION NOTE REASON FOR EVALUATION: MULTIPLE WOUNDS COMPLETE SKIN ASSESSMENT DONE ON THIS 62Y/O FEMALE PATIENT FROM HOME TO [facility], WITH INITIAL DIAGNOSIS OF SELF-HARM . PAST MEDICAL HX INCLUDES ALCOHOL ABUSE, DEPRESSION, DMII AND THYROID CANCER. ALL ABOVE INFORMATION WAS OBTAINED FROM THE PT. AND ADMISSION H&P. LABS ARE WBC 4.1, H/H 11.1/34.4, GLUCOSE 111, ALBUMIN 3.9, PT/INR 10.4/1.0 AND PTT 25.1. WOUND CULTURE RESULT MRSA. MEDICATIONS INCLUDE CLINDAMYCIN, LEVOTHYROXINE, ALPRAZOLAM, AND QUETIAPINE. PATIENT IS AAOX4, WELL HYDRATE, AMBULATED TO BATHROOM. SKIN WARN AND DRY, WNL. SKIN TURGOR TIGHT. BLE NO HAIR GROWTH, BILATERAL PEDAL PULSES PRESENT AND STRONG. INITIAL PLAN OF CARE DISCUSSED WITH PT. PRIMARY RN. PT. VERBALIZES UNDERSTAND INTEGUMENTARY: RLQ ABDOMINAL: OPEN WOUND 3X7X0.1CM, WOUND BED RED, PERIWOUND ERYTHEMA, WOUND EDGE FLAT WITH SMALL AMOUNT SANGUINOUS DRAINAGE, NO ODOR. LEFT FOREARM TO WRIST MULTIPLE S/P INJURY VASQUEZ BY KNIFE, AREAS ARE CLEAN, NOTICE OF DRY SCABS, NO S/S OF INFECTION RECOMMENDATIONS: -CLEANSE LEFT FOREARM TO WRIST MULTIPLE S/P INJURY VASQUEZ BY KNIFE WITH NS, PAT DRY, PAINT WITH BETADINE ESTEFANI. AND TOREY QD -CLEANSE RLQ ABDOMINAL WOUND WITH NS. PAT DRY, APPLY HYDRAGEL COVER WITH DRY DRESSING AND SECURE WITH TAPE QD AND PRN IF SOILING -KEEP AREA DRY AND CLEAN AT ALL [place] -ASSESS AND MONITOR WOUND SITE DURING WOUND CARE AND NOTIFY PHYSICIAN FOR ANY S/S INFECTION OR CHANGE OF CONDITION RECOMMENDATIONS DISCUSSED WITH PRIMARY RN. AND DR. AWAD WILL FOLLOW UP PATIENT Q 7-10 DAYS AND PRN. PLEASE CONTACT WOUND CARE NURSE FOR ANY CONCERNS, QUESTIONS AND CHANGES IN SKIN CONDITION.
[2017-08-11] MEDS: metFORMIN 500 MG TAB PO SCH ×2 (08:49→16:28)
[2017-08-11] MEDS: CALCIUM ACETATE 667 MG TAB PO SCH (08:49)
--- NOTE | 2017-08-11 08:50 | NUR ---
PATIENT LYING IN BED COMFORTABLY. NO DISTRESS NOTED. DENIES ANY PAIN. MEDICATIONS DUE GIVEN. SAFETY MEASURES IN PLACE, 1:1 SITTER AT BEDSIDE. WILL CONTINUE TO MONITOR.
[2017-08-11] MEDS ORDERED: NACL 0.9% IRR 250 ML BOTTLE IR SCH ×4 (09:00→13:00)
[2017-08-11] MEDS: LACTOBACILLUS RHAMNOSUS GG 1 EACH CAP PO SCH (09:36)
[2017-08-11] MEDS: FOLIC ACID 1 MG TAB PO SCH (09:36)
[2017-08-11] MEDS: DOCUSATE SODIUM 100 MG GELCAP PO SCH ×2 (09:36→20:35)
[2017-08-11] MEDS: ASPIRIN 81 MG TAB.CHEW PO SCH (09:36)
[2017-08-11] MEDS: CALCIUM CARB/VIT-D 500 MG/200 IU 1 TAB PO SCH (09:36)
[2017-08-11] MEDS: PANTOPRAZOLE 40 MG TABEC PO SCH (09:36)
[2017-08-11] MEDS: LISINOPRIL 20 MG TAB PO SCH (09:37)
[2017-08-11] MEDS: MULTIVITAMIN 1 TAB PO SCH (09:37)
[2017-08-11] MEDS: NYSTATIN 500 MU/5 ML UDC PO SCH ×4 (09:38→20:35)
[2017-08-11] MEDS: QUEtiapine FUMARATE 100 MG TAB PO SCH ×2 (09:38→20:36)
[2017-08-11] MEDS: THIAMINE 100 MG TAB PO SCH (09:38)
[2017-08-11] MEDS ORDERED: NON ADHERENT DRESSING TP PRN (09:50)
[2017-08-11] MEDS ORDERED: SKINTEGRITY HYDROGEL TP PRN (09:50)
[2017-08-11] MEDS ORDERED: NACL 0.9% IRR 250 ML BOTTLE IR PRN (09:50)
[2017-08-11] MEDS ORDERED: DRY DRESSING TP PRN (09:50)
--- NOTE | 2017-08-11 11:30 | NUR ---
PATIENT IN BATHROOM CLEANING UP WITH ASSISTANCE OF COMMUTATOR REPAIRER. ABLE TO AMBULATE TO BATHROOM AND BACK WITH STEADY GAIT. BLOOD GLUCOSE CHECKED PER PROTOCOL. DENIES ANY PAIN AT THIS TIME. DENIES ANY THOUGHTS TO HARM SELF. IV INTACT, PATENT AND INFUSING. WOUND DRESSINGS DRY AND INTACT. ISOLATION PRECAUTIONS IN PLACE, SAFETY MEASURES IN PLACE, 1:1 SITTER AT BEDSIDE. WILL CONTINUE TO MONITOR.
--- NOTE | 2017-08-11 12:38 | NUR ---
08/11/17 RD INITIAL ASSESSMENT COMPLETED PLEASE REFER TO NUTRITION ASSESSMENT UNDER CARE ACTIVITY FOR ESTIMATED NUTRITIONAL NEEDS. 1. [facility] TOLERATED --PT MEETING >95% OF ESTIMATED KCAL AND PROTEIN NEEDS 2. RD TO FOLLOW-UP 5-7 DAYS, LOW RISK TEDDY SANCHEZ, RD
[2017-08-11] MEDS: SKINTEGRITY HYDROGEL TP SCH (12:52)
[2017-08-11] MEDS ORDERED: MAG SULF 2000 MG/WATER PREMIX 50 ML IV ONE (12:55)
[2017-08-11] MEDS ORDERED: NON ADHERENT DRESSING TP SCH ×2 (13:00)
[2017-08-11] MEDS ORDERED: DRY DRESSING TP SCH ×2 (13:00)
[2017-08-11] MEDS ORDERED: SKINTEGRITY HYDROGEL TP SCH (13:00)
[2017-08-11] MEDS ORDERED: COMPOSITE DRESSING TP SCH (13:00)
--- NOTE | 2017-08-11 13:11 | NUR ---
PATIENT SITTING IN BED COMFORTABLY. NO DISTRESS NOTED. DENIES ANY PAIN. CONDITION UNCHANGED. NO THOUGHTS OF HARMING SELF. MEDICATIONS DUE GIVEN. WOUND CARE ON RIGHT ABD AND LEFT WRIST PERFORMED PER ORDERS: RIGHT ABD: CLEANSED WITH NS, PAT DRIED, APPLIED HYDRAGEL, AND COVERED WITH COMPOSITE DRESSING. LEFT WRIST: CLEANSED WITH NS, PAT DRIED, APPLIED BETADINE, AND LEFT TOREY. PATIENT TOLERATED PROCEDURE WELL. SAFETY MEASURES IN PLACE, 1:1 SITTER IN ROOM. WILL CONTINUE TO MONITOR.
[2017-08-11] MEDS ORDERED: MAG SULF 2000 MG/WATER PREMIX 50 ML IV SCH (13:30)
--- NOTE | 2017-08-11 14:41 | NUR ---
PATIENT SLEEPING COMFORTABLY. AROUSABLE TO VOICE. NO DISTRESS NOTED. RESPIRATIONS EVEN, UNLABORED, ON ROOM AIR. MAGNESIUM VIA IVPB HUNG PER MD ORDERS DUE TO LOW MAGNESIUM OF 1.6. SAFETY MEASURES IN PLACE, CALL LIGHT WITHIN REACH. WILL CONTINUE TO MONITOR.
[2017-08-11 16:00] VITALS: BP 99/72
--- NOTE | 2017-08-11 16:15 | NUR ---
PATIENT LYING IN BED COMFORTABLY. NO DISTRESS NOTED. DENIES ANY PAIN. RESPIRATIONS EVEN, UNLABORED, ON ROOM AIR. IV INTACT, PATENT, AND INFUSING. DENIES ANY SUICIDAL IDEATIONS. WOUND DRESSINGS INTACT AND DRY. MEDICATIONS DUE GIVEN. SAFETY MEASURES IN PLACE, CONTACT PRECAUTIONS IN PLACE, 1:1 SITTER AT BEDSIDE. WILL CONTINUE TO MONITOR.
--- NOTE | 2017-08-11 16:30 | NUR ---
DR. BELINDA TUCKER AT BEDSIDE FOR PSYCH CONSULT. WILL CONTINUE TO MONITOR.
--- NOTE | 2017-08-11 16:45 | NUR ---
DR. BELINDA TUCKER CLEARED PATIENT FROM 5150. SS ORDERS PLACED FOR REFERALL TO ALCOHOL TREATMENT (ARGENTINE SPEAKING) AND INDIVIDUAL PSYCHOTHERAPY. 1:1 SITTER REMOVED FROM BEDSIDE, SAFETY MEASURES IN PLACE, CALL LIGHT WITHIN REACH. WILL CONTINUE TO MONITOR.
--- NOTE | 2017-08-11 17:46 | NUR ---
PATIENT SITTING IN BED COMFORTABLY. NO DISTRESS NOTED. DENIES ANY PAIN. RESPIRATIONS EVEN, UNLABORED, ON ROOM AIR. IV INTACT, PATENT AND INFUSING. NO THOUGHTS OF HARMING SELF. SAFETY MEASURES IN PLACE, CALL LIGHT WITHIN REACH. WILL CONTINUE TO MONITOR.
--- NOTE | 2017-08-11 18:48 | NUR ---
PATIENT LYING IN BED COMFORTABLY. NO DISTRESS NOTED. DENIES ANY PAIN. CONDITION UNCHANGED. SAFETY MEASURES IN PLACE, CALL LIGHT WITHIN REACH. WILL CONTINUE TO MONITOR.
--- NOTE | 2017-08-11 19:25 | NUR ---
GAVE REPORT TO STEAM DISTRIBUTION SUPERVISOR NURSE FOR CONTINUITY OF CARE. PATIENT IN STABLE CONDITION.
--- NOTE | 2017-08-11 19:26 | NUR ---
RECEIVED BEDSIDE REPORT FROM DAY SHIFT NURSE, PT STABLE, NO DISTRESS NOTED, AAOX4, IV TO THE R WRIST 24 G RUNNING NS @50ML/HR, INFUSING WELL, INITIAL ASSESSMENT DONE, ALL SAFETY PRECAUTION MET, DAUGHTER BY BEDSIDE, WILL CONTINUE TO MONITOR.
[2017-08-11] MEDS: ATORVASTATIN 20 MG TAB PO SCH (20:35)
--- NOTE | 2017-08-11 20:35 | NUR ---
DUE MEDICATION GIVEN, PT TOLERATED WELL, NO DISTRESS NOTED, PT RESTING, CALL LIGHT WITHIN REACH, WILL CONTINUE TO MONITOR.
[2017-08-12] VITALS: BP 120/69
[2017-08-12] MEDS: SKINTEGRITY HYDROGEL TP SCH (00:08)
--- NOTE | 2017-08-12 00:08 | NUR ---
WOUND DRESSING SATURATED, CLEANSE WOUND WITH NS, PAT DRY WITH GAUZE, CHANGED DRESSING, ADMINISTERED HYDROGEL ORDERED COVERED WITH COMPOSITE DRESSING, PT TOLERATED WELL, WILL CONTINUE TO MONITOR.
--- NOTE | 2017-08-12 02:40 | NUR ---
CHECKED ON PT, PT SLEEPING, EASY TO AROUSE, NO DISTRESS NOTED, WILL CONTINUE TO MONITOR.
[2017-08-12] MEDS: NACL 0.9% 1,000 ML IV SCH (05:03)
[2017-08-12] MEDS: LORazepam 1 MG TAB PO SCH (05:52)
[2017-08-12] MEDS: LEVOTHYROXINE 0.075 MG TAB PO SCH (05:52)
--- NOTE | 2017-08-12 05:52 | NUR ---
DUE MEDICATION GIVEN, WALKED PT TO THE RESTROOM AND BACK TO BED, PT TOLERATED WELL, NO DISTRESS NOTED, CALL LIGHT WITHIN REACH, WILL CONTINUE TO MONITOR.
[2017-08-12] MEDS: BLOOD GLUCOSE MONITORING 1 DEV DEV FS SCH ×2 (06:03→11:52)
[2017-08-12 06:39] LABS: BASOPHILS # (AUTO) 0.2 K/uL (0.00-0.22); BASOPHILS % (AUTO) 3.5 % (0.0-2.0); EOSINOPHILS # (AUTO) 0.2 K/uL (0-0.4); EOSINOPHILS % (AUTO) 3.3 % (0.0-4.0); HEMATOCRIT 34.9 % (36-48); HEMOGLOBIN 11.3 g/dL (12.0-16.0); LYMPHOCYTES # (AUTO) 1.4 K/uL (2.5-16.5); LYMPHOCYTES % (AUTO) 30.4 % (20.5-51.1); MEAN CORPUSCULAR HEMOGLOBIN 28 pg (27-31); MEAN CORPUSCULAR HGB CONC 32 g/dL (33-37); MEAN CORPUSCULAR VOLUME 88 fL (80-94); MONOCYTES # (AUTO) 0.4 K/uL (0.8-1.0); MONOCYTES % (AUTO) 9.5 % (1.7-9.3); NEUTROPHILS # (AUTO) 2.5 K/uL (1.8-7.7); NEUTROPHILS % (AUTO) 53.3 % (42.2-75.2); PLATELET COUNT (AUTO) 177 K/uL (140-450); RED BLOOD CELL COUNT(AUTO) 3.97 MIL/uL (4.20-5.40); RED CELL DISTRIBUTION WIDTH 14.1 % (11.6-13.7); WHITE BLOOD COUNT (AUTO) 4.7 K/uL (4.8-10.8)
[2017-08-12 06:54] LABS: ANION GAP 9.6 (8-16); CARBON DIOXIDE 29.5 mmol/L (21-32); POTASSIUM 4.1 mmol/L (3.5-5.1)
[2017-08-12 07:04] LABS: MAGNESIUM 2.1 mg/dL (1.8-2.4); PHOSPHORUS 4.2 mg/dL (2.5-4.9)
--- NOTE | 2017-08-12 07:12 | NUR ---
ENDORSED PT TO AM NURSE, MARCELO RN, PT STABLE NO DISTRESS NOTED, CALL LIGHT WITHIN REACH.
--- NOTE | 2017-08-12 07:28 | NUR ---
RECEIVED PT IN BED. AWAKE, ALERT ORIENTEDX4. NO SOB NOTED. DENIES ANY PAIN OR DISCOMFORT AT THIS TIME. PT AMBULATORY. SAFETY PRECAUTION IN PLACE. CALL LIGHT WITHIN REACH.
[2017-08-12 08:00] VITALS: BP 119/76
[2017-08-12] MEDS ORDERED: lisinopril PO (08:15)
[2017-08-12] MEDS ORDERED: ASPI81CT89 PO (08:17)
[2017-08-12] MEDS ORDERED: LEVO0.155 PO (08:17)
[2017-08-12] MEDS: LACTOBACILLUS RHAMNOSUS GG 1 EACH CAP PO SCH (08:42)
[2017-08-12] MEDS: PANTOPRAZOLE 40 MG TABEC PO SCH (08:42)
[2017-08-12] MEDS: MULTIVITAMIN 1 TAB PO SCH (08:42)
[2017-08-12] MEDS: LISINOPRIL 20 MG TAB PO SCH (08:43)
[2017-08-12] MEDS: FOLIC ACID 1 MG TAB PO SCH (08:43)
[2017-08-12] MEDS: THIAMINE 100 MG TAB PO SCH (08:43)
[2017-08-12] MEDS: metFORMIN 500 MG TAB PO SCH (08:43)
[2017-08-12] MEDS: CALCIUM CARB/VIT-D 500 MG/200 IU 1 TAB PO SCH (08:43)
[2017-08-12] MEDS: CALCIUM ACETATE 667 MG TAB PO SCH (08:44)
[2017-08-12] MEDS: NYSTATIN 500 MU/5 ML UDC PO SCH (08:44)
[2017-08-12] MEDS: ASPIRIN 81 MG TAB.CHEW PO SCH (08:44)
[2017-08-12] MEDS: DOCUSATE SODIUM 100 MG GELCAP PO SCH (08:44)
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
[2017-08-12] MEDS ORDERED: NACL 0.9% IRR 250 ML BOTTLE IR SCH (09:00)
[2017-08-12] MEDS ORDERED: MUPIROCIN 2% OINT 22 GM TUBE TP SCH (09:00)
[2017-08-12] MEDS ORDERED: QUEtiapine FUMARATE 100 MG TAB PO SCH (09:00)
--- NOTE | 2017-08-12 09:01 | NUR ---
RECEIVED ORDER TO PROVIDE REFERRALS FOR ALCOHOL TREATMENT AND INDIVIDUAL PSYCHOTHERAPY. PATIENT AND DAUGHTER ON FRIDAY ALREADY GIVEN INFORMATION ON ALCOHOL TREATMENT. THROUGH [facility] TECHNICAL ARCHITECT, BRANDY, I GAVE THE PATIENT INFORMATION ON COUNSELING/MENTAL HEALTH/PSYCHIATRIC PROGRAMS.
[2017-08-12] MEDS ORDERED: [UNRECOGNIZED DRUG - CODE] PO (09:02)
[2017-08-12] MEDS ORDERED: BACTO TP (09:02)
[2017-08-12] MEDS ORDERED: CALC-846 PO (09:02)
[2017-08-12] MEDS ORDERED: FOLI1TAB90 PO (09:02)
[2017-08-12] MEDS ORDERED: ATOR20TA40 PO (09:02)
[2017-08-12] MEDS ORDERED: MULT-405 PO (09:02)
[2017-08-12] MEDS ORDERED: LISI-420 PO (09:02)
[2017-08-12] MEDS ORDERED: QUET100T44 PO (09:02)
[2017-08-12] MEDS ORDERED: SYN.075 PO (09:02)
[2017-08-12] MEDS ORDERED: ASPI81CT95 PO (09:02)
[2017-08-12] MEDS ORDERED: THIA-8 PO (09:02)
[2017-08-12] MEDS ORDERED: GLU500 PO (09:02)
[2017-08-12] MEDS ORDERED: LORA-476 PO (09:04)
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
--- NOTE | 2017-08-12 12:40 | NUR ---
DISCHARGE INSTRUCTIONS AND HEALTH TEACHINGS GIVEN AND EXPLAINED TO PT. PT VERBALIZED UNDERSTANDING. BOYFRIED AT BEDSIDE REMINDED TO FOLLOW UP WITH APPOINTMENT SCHEDULED ON DISCHARGE PAPER. PT VERBALIZED UNDERSTANDING. RECOMMENDED TO ATTENDED aa FOR ALCOHOL DEPENDENCE, AND INQUIRE FOR PSYCH REFERRAL. PT VERBALIZED UNDERSTANDING. PT SIGNED DISCHARGE PAPERS. PROVIDED PRESCRIPTION. NO SOB NOTED. DENIES ANY PAIN OR DISCOMFORT AT THIS TIME. IV CANNULA REMOVED AND INTACT. CALLED DAUGHTER LILY, MADE AWARE OF DISCHARGE. BOYFRIEND AT BEDSIDE AND WILL TAKE PT HOME.
--- NOTE | 2017-08-12 13:00 | NUR ---
IV CANNULA REMOVED AND INTACT.NAME ARMBAND REMOVED. CALLED SECURITY FOR PT BELONGINGS. NO SOB NOTED DENIES ANY PAIN OR DISCOMFORT AT THIS TIME. BOYFRIEND AMNUELA WITH PT. PT WHEELED OUT GOING TO THE HOSPITAL PARKING LOT ASSISTED BY STEPHANIE. WITH BOYFRIEND MANUELA. GOING TO THEIR PRIVATE OWNED VEHICLE. PT DISCHARGED ON STABLE CONDITION.
== END 2017-08-12 13:00 | disposition home or self-care (01) | DRG 775 ==
LOC: EDBD 11:19 → MED 11:19 → MTU 13:45
PROVIDERS: ADMIT Family Medicine; ATTEND Family Medicine
DX: F10.220 Alcohol dependence with intoxication, uncomplicated (principal); N17.0 Acute kidney failure with tubular necrosis; G92 Toxic encephalopathy; D68.59 Other primary thrombophilia; I42.9 Cardiomyopathy, unspecified; B37.0 Candidal stomatitis; R45.851 Suicidal ideations; E83.42 Hypomagnesemia; E83.39 Other disorders of phosphorus metabolism; Y90.7 Blood alcohol level of 200-239 mg/100 ml; I10 Essential (primary) hypertension; E78.5 Hyperlipidemia, unspecified; F41.9 Anxiety disorder, unspecified; E87.6 Hypokalemia; E66.9 Obesity, unspecified; E83.51 Hypocalcemia; E89.0 Postprocedural hypothyroidism; L98.499 Non-pressure chronic ulcer of skin of other sites with unspecified severity; K27.9 Peptic ulcer, site unspecified, unspecified as acute or chronic, without hemorrhage or perforation; I35.0 Nonrheumatic aortic (valve) stenosis; D64.9 Anemia, unspecified; F31.2 Bipolar disorder, current episode manic severe with psychotic features; E11.51 Type 2 diabetes mellitus with diabetic peripheral angiopathy without gangrene; F45.9 Somatoform disorder, unspecified; S61.522A Laceration with foreign body of left wrist, initial encounter; X78.1XXA Intentional self-harm by knife, initial encounter; Y93.89 Activity, other specified; Y92.89 Other specified places as the place of occurrence of the external cause; Y99.8 Other external cause status; Z22.322 Carrier or suspected carrier of Methicillin resistant Staphylococcus aureus; Z59.9 Problem related to housing and economic circumstances, unspecified; Z68.37 Body mass index [BMI] 37.0-37.9, adult; Z85.850 Personal history of malignant neoplasm of thyroid; Z91.5 Personal history of self-harm; Z79.4 Long term (current) use of insulin
CPT/HCPCS: 36415; 51702; 71010; 76705; 80048; 80053; 80305; 81001; 82140; 82150; 82550; 82553; 82948; 83036; 83690; 83735; 83880; 84100; 84439; 84443; 84484; 85025; 85610; 85730; 87040; 87070; 87075; 87081; 87186; 87205; 93005; 93925; 93970; 96374; 96375; 99285; A6248; G0480; G0482; J0690; J1815; J1885; J2060; J2405; J3475; J3490; J7030; J7060; Q0092; S0119

== ENCOUNTER 2017-12-23 08:53 | Inpatient (IN) | payer MEDICAID, OTHER ==
[~2017-12-23] VITALS: Ht 157.5 cm; Wt 102.1 kg
[2017-12-23 08:53] VITALS: BP 150/84
[~2017-12-23 08:53] MED LIST: ASPI81CT95 PO; ATOR20TA40 PO; BACTO TP; CALC-846 PO; FOLI1TAB90 PO; GLU500 PO; LISI-420 PO; LORA-476 PO; MULT-405 PO; QUET100T44 PO; SYN.075 PO; THIA100T31 PO; [UNRECOGNIZED DRUG - CODE] PO
--- NOTE | 2017-12-23 08:55 | NUR ---
Patient BIBA to bed 3 at this time.
--- NOTE | 2017-12-23 09:13 | NUR ---
PATIENT BIB [facility] WITH C/O ETOH/ANXIETY, PER PT SHE DRINK "6 GLASSES OF VODKA" EARLIER HAD PROBLEMS WITH HER DAUGHTER HX; HTN RX; LISINOPRIL, SYNTHROID, ASPIRIN, MICLIZINE, LORAZEPAM, IBUPROFEN; DENIES N/V/D; SKIN IS PINK/WARM/DRY; AAOX4 WITH EVEN AND STEADY GAIT; LUNGS CLEAR BL; HR EVEN AND REGULAR; PT DENIES ANY FEVER, CP, SOB, OR COUGH AT THIS TIME; PATIENT STATES PAIN OF 0/10 AT THIS TIME; VSS; PATIENT POSITIONED FOR COMFORT; HOB ELEVATED; BEDRAILS UP X2; BED DOWN. ER MD MADE AWARE OF PT STATUS.
[2017-12-23] MEDS ORDERED: NACL 0.9% 1,000 ML IV ONE (09:15)
[2017-12-23] MEDS ORDERED: THIAMINE 200 MG/2 ML VIAL IM ONE (09:15)
[2017-12-23 10:03] LABS: BASOPHILS # (AUTO) 0.2 K/uL (0.00-0.22); BASOPHILS % (AUTO) 4.2 % (0.0-2.0); EOSINOPHILS # (AUTO) 0.1 K/uL (0-0.4); EOSINOPHILS % (AUTO) 1.3 % (0.0-4.0); HEMOGLOBIN 12.4 g/dL (12.0-16.0); LYMPHOCYTES # (AUTO) 1.8 K/uL (2.5-16.5); LYMPHOCYTES % (AUTO) 36.4 % (20.5-51.1); MEAN CORPUSCULAR HEMOGLOBIN 28 pg (27-31); MEAN CORPUSCULAR HGB CONC 33 g/dL (33-37); MEAN CORPUSCULAR VOLUME 86 fL (80-94); MONOCYTES # (AUTO) 0.3 K/uL (0.8-1.0); MONOCYTES % (AUTO) 6.3 % (1.7-9.3); NEUTROPHILS # (AUTO) 2.6 K/uL (1.8-7.7); NEUTROPHILS % (AUTO) 51.8 % (42.2-75.2); PLATELET COUNT (AUTO) 193 K/uL (140-450); RED BLOOD CELL COUNT(AUTO) 4.45 MIL/uL (4.20-5.40); RED CELL DISTRIBUTION WIDTH 14.6 % (11.6-13.7)
[2017-12-23 10:11] LABS: ALBUMIN 3.6 g/dL (3.4-5.0); ANION GAP 11.5 (8-16); CARBON DIOXIDE 29.8 mmol/L (21-32); CREATININE 0.7 mg/dL (0.6-1.3); POTASSIUM 3.3 mmol/L (3.5-5.1); TOTAL BILIRUBIN 0.4 mg/dL (0.0-1.0)
[2017-12-23] MEDS ORDERED: FOLIC ACID 1 MG TAB PO ONE (10:20)
[2017-12-23] MEDS ORDERED: POTASSIUM CHLORIDE 10 MEQ TABER PO ONE (10:30)
--- NOTE | 2017-12-23 10:45 | NUR ---
PT UNRESPONSIVE TO VERBAL COMMAND OR PRESSURE STIMULI---- REACTIVE TO AMMONIA INHALANT----AWAKE ALERT SITTING UP
[2017-12-23] MEDS ORDERED: AMMONIA AROMATIC 1 INHL INH ONE (10:49)
[2017-12-23] MEDS ORDERED: LACTATED RINGERS 1,000 ML IV SCH (11:09)
[2017-12-23] MEDS ORDERED: ONDANSETRON 4 MG/2 ML VIAL IVP PRN ×2 (11:10)
[2017-12-23] MEDS ORDERED: ACETAMINOPHEN 325 MG TAB PO PRN (11:10)
[2017-12-23] MEDS ORDERED: HYDROcodone/APAP 5/325 MG 1 TAB TAB PO PRN ×2 (11:10)
[2017-12-23] MEDS ORDERED: LORazepam 1 MG TAB PO PRN (11:10)
[2017-12-23 12:00] LABS: PROTHROMBIN TIME 10.3 secs (10.8-13.4)
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
[2017-12-23] MEDS ORDERED: MULTIVITAMIN-12 10 ML, THIAMINE 100 MG, MAGNESIUM SULFATE 50% 2,000 MG, FOLIC ACID 5 MG... IV SCH ×5 (12:15)
--- NOTE | 2017-12-23 12:30 | NUR ---
RECEIVED PT ON UNIT VIA [employer]. PT IS AAOX2, LETHARGIC, PT HAS IV ON THE LEFT AC, PATENT, INTACT, FLUSHING WELL, NO S/S OF RESPIRATORY DISTRESS OR DISCOMFORT NOTED, DISCUSSED PLAN OF CARE WITH PT, PT REINFORCEMENT NEEDED, ORIENTED PT TO ROOM, SAFETY/FALL PRECAUTIONS ARE IN PLACE, CALL LIGHT IS WITHIN REACH, WILL CONTINUE TO MONITOR.
--- NOTE | 2017-12-23 12:30 | NUR ---
Pt report given to DAVID CHEN. Transfer of care at this time TO TELE ROOM 108-A
[2017-12-23] MEDS: LORazepam 1 MG TAB PO SCH ×2 (13:00→21:13)
--- NOTE | 2017-12-23 13:07 | NUR ---
PT IS LETHARGIC AT THIS TIME. WILL HOLD THE ATIVAN AT THIS TIME.
--- NOTE | 2017-12-23 13:33 | NUR ---
DR. RUFF HERE TO SEE PT. IS AT PATIENT'S BEDSIDE.
[2017-12-23] MEDS: LORazepam 1 MG TAB PO PRN ×2 (13:56→18:57)
[2017-12-23 14:44] LABS: APPEARANCE,URINE CLEAR (CLEAR); BILIRUBIN,URINE NEGATIVE (NEGATIVE); BLOOD, URINE NEGATIVE (NEGATIVE); LEUKOCYTE ESTERASE ,URINE 1+ (NEGATIVE); NITRITE, URINE NEGATIVE (NEGATIVE); PH,URINE 6.5 (5.0-9.0); UGLUCOSE NEGATIVE (NEGATIVE)
[2017-12-23 14:57] LABS: COLOR,URINE STRAW (YELLOW)
[2017-12-23 15:09] LABS: RBC,URINE NONE SEEN /HPF (0-5); WBC,URINE 0-5 (RARE) /HPF (0-5)
[2017-12-23 15:27] LABS: BARBITURATE, URINE NEG. ng/ml (NEG <=200); BENZODIAZEPINE, URINE NEG. ng/mL (NEG <=200); CANNABINOID, URINE NEG. ng/mL (NEG <=50); COCAINE, URINE NEG. ng/mL (NEG <=300); OPIATE, URINE NEG. ng/mL (NEG <=2000); PHENCYCLIDINE SCREEN,URINE NEG. ng/mL (NEG <=25)
[2017-12-23 16:00] VITALS: BP 153/86
--- NOTE | 2017-12-23 16:10 | NUR ---
PT SLEEPING IN BED AT THIS TIME, CALL LIGHT IS WITHIN REACH.
--- NOTE | 2017-12-23 18:50 | NUR ---
PT COMPLAINING OF ANXIETY AND HEADACHE. WILL MEDICATE WITH PRN ATIVAN AND TYLENOL AT THIS TIME.
--- NOTE | 2017-12-23 19:20 | NUR ---
ENDORSED PT TO COAL SHOVELER NURSE FOR CONTINUITY OF CARE. PT STABLE AT THIS TIME.
--- NOTE | 2017-12-23 19:21 | NUR ---
RECEIVED REPORT FROM DAY SHIFT RN, PT IS A/OX4, ON ROOM AIR. 20G IV ACCESS TO LEFT AC, SALINE LOCKED. PT AMBULATES WITH STEADY GAIT, SKIN IS INTACT. UPDATED BOARD. DISCUSSED PLAN OF CARE WITH PT, PT VERBALIZED UNDERSTANDING. VITAL SIGNS WITHIN NORMAL LIMITS. PT IN STABLE CONDITION, NO SIGNS OF DISTRESS NOTED. BED IN LOWEST POSITION, CALL LIGHT WITHIN REACH. WILL CONTINUE TO MONITOR.
[2017-12-23 20:00] VITALS: BP 155/82
[2017-12-23] MEDS ORDERED: ATORVASTATIN 20 MG TAB PO SCH (21:00)
--- NOTE | 2017-12-23 21:15 | NUR ---
ADMINISTERED SCHEDULED MEDICATIONS, PT TOLERATED WELL. PT STATES FEELING VERY ANXIOUS AND SAYS THE EARLIER MEDICATION DID NOT HELP AT ALL BECAUSE HER ANXIETY IS INCREASING, INFORMED PT THIS SCHEDULED MEDICATION IS THE SAME BUT THAT IT SHOULD HELP HER, AND IF IT DOESN'T WE CAN TRY A HIGHER DOSE LATER.
--- NOTE | 2017-12-23 21:42 | NUR ---
SPOKE TO DR HOGAN REGARDING PT C/O URINARY URGE AND BURNING SENSATION. DR ORDERED PYRIDIUM PO 100MG TID FOR 2 DAYS. WILL PUT IN ORDER AND WAIT FOR PHARMACY TO VERIFY.
[2017-12-23] MEDS ORDERED: PHENAZOPYRIDINE 100 MG TAB PO SCH (22:00)
--- NOTE | 2017-12-23 22:28 | NUR ---
ADMINISTERED APPROVED PYRIDIUM, PT TOLERATED WELL. PT IN STABLE CONDITION, NO SIGNS OF DISTRESS NOTED. BED IN LOWEST POSITION, CALL LIGHT WITHIN REACH. WILL CONTINUE TO MONITOR.
[2017-12-24] VITALS: BP 123/79
--- NOTE | 2017-12-24 03:44 | NUR ---
ENDORSED PT IN STABLE CONDITION TO GUSTAVO HOWELL.
--- NOTE | 2017-12-24 03:45 | NUR ---
RECEIVED PT FROM SERINA CHEN PT NIGERIAN SPEAKER AAOX4 AMBULATORY ON TELMETRY SR , HL ON LEFT AC [place] #20 PATENT PT WAS TRANSFER TO ROOM 120 A AND GETTING SLEEP AT THIS TIME.
[2017-12-24 04:00] VITALS: BP 138/78
[2017-12-24] MEDS: LORazepam 1 MG TAB PO SCH (04:55)
--- NOTE | 2017-12-24 05:49 | NUR ---
SPONGE BATH GIVEN LINEN CHANGED ON TELEMETRY SR NOT DISTRESS NOTED
[2017-12-24 06:25] LABS: BASOPHILS # (AUTO) 0.3 K/uL (0.00-0.22); BASOPHILS % (AUTO) 3.9 % (0.0-2.0); EOSINOPHILS # (AUTO) 0.1 K/uL (0-0.4); EOSINOPHILS % (AUTO) 0.8 % (0.0-4.0); HEMATOCRIT 36.6 % (36-48); HEMOGLOBIN 11.9 g/dL (12.0-16.0); LYMPHOCYTES # (AUTO) 1.5 K/uL (2.5-16.5); LYMPHOCYTES % (AUTO) 20.6 % (20.5-51.1); MEAN CORPUSCULAR HEMOGLOBIN 28 pg (27-31); MEAN CORPUSCULAR HGB CONC 33 g/dL (33-37); MEAN CORPUSCULAR VOLUME 86 fL (80-94); MONOCYTES # (AUTO) 0.5 K/uL (0.8-1.0); MONOCYTES % (AUTO) 7.4 % (1.7-9.3); NEUTROPHILS # (AUTO) 4.9 K/uL (1.8-7.7); NEUTROPHILS % (AUTO) 67.3 % (42.2-75.2); PLATELET COUNT (AUTO) 195 K/uL (140-450); RED BLOOD CELL COUNT(AUTO) 4.28 MIL/uL (4.20-5.40); RED CELL DISTRIBUTION WIDTH 14.1 % (11.6-13.7); WHITE BLOOD COUNT (AUTO) 7.3 K/uL (4.8-10.8)
[2017-12-24] MEDS ORDERED: LEVOTHYROXINE 0.075 MG TAB PO SCH (06:30)
--- NOTE | 2017-12-24 06:44 | NUR ---
AAOX4, AMBULATORY COOPERATIVE PT WILL BE ENDORSED TO DAY SHIFT NURSE FOR CONTINUITY OF CARE
[2017-12-24 07:17] LABS: ALBUMIN 3.2 g/dL (3.4-5.0); ANION GAP 11.7 (8-16); CREATININE 0.8 mg/dL (0.6-1.3); MAGNESIUM 2.1 mg/dL (1.8-2.4); POTASSIUM 3.7 mmol/L (3.5-5.1)
--- NOTE | 2017-12-24 07:30 | NUR ---
RECEIVED REPORT FROM GUSTAVO HOWELL. PT IS RESTING IN BED BUT EASILY AWAKEN, PT IS AAOX4, AMBULATORY, PT HAS IV ON THE LEFT AC, PATENT, INTACT, FLUSHING WELL, NO S/S OF RESPIRATORY DISTRESS OR DISCOMFORT NOTED, DISCUSSED PLAN OF CARE WITH PT, PT VERBALIZED UNDERSTANDING, CALL LIGHT LIGHT WITHIN REACH, WILL CONTINUE TO MONITOR.
[2017-12-24] MEDS ORDERED: LIB25 PO (08:28)
[2017-12-24] MEDS ORDERED: chlordiazePOXIDE 25 MG CAP PO SCH ×3 (08:33→09:00)
[2017-12-24] MEDS ORDERED: THIAMINE 100 MG TAB PO SCH (09:00)
[2017-12-24] MEDS ORDERED: LISINOPRIL 20 MG TAB PO SCH (09:00)
[2017-12-24] MEDS ORDERED: ENOXAPARIN 40 MG/0.4 ML SYR SUBQ SCH (09:00)
[2017-12-24] MEDS ORDERED: ASPIRIN 81 MG TAB.CHEW PO SCH (09:00)
[2017-12-24] MEDS ORDERED: PHENAZOPYRIDINE 100 MG TAB PO SCH (09:00)
[2017-12-24] MEDS ORDERED: MULTIVITAMIN 1 TAB PO SCH (09:00)
[2017-12-24] MEDS ORDERED: FOLIC ACID 1 MG TAB PO SCH ×2 (09:00)
--- NOTE | 2017-12-24 10:30 | NUR ---
DISCHARGE INSTRUCTIONS GIVEN, IV REMOVED, CATHETER TIP INTACT, ID WRIST BAND REMOVED. PT STABLE UPON DISCHARGED ACCOMPANIED BY FAMILY MEMBER
--- NOTE | 2017-12-24 10:36 | NUR ---
PATIENT HAS BEEN SCREENED AND CATEGORIZED HIGH NUTRITION RISK. PATIENT WILL BE SEEN WITHIN 1-2 DAYS OF ADMISSION. 12/24/17 - 12/25/[address]
--- NOTE | 2017-12-24 12:22 | NUR ---
CM NOTE INITIAL REVIEW FAXED TO [facility] [phone] CARRIE # [phone]
== END 2017-12-24 10:30 | disposition home or self-care (01) | DRG 775 ==
LOC: MED 08:53 → MTU 11:19
PROVIDERS: ADMIT Hospitalist; ATTEND Hospitalist
DX: F10.129 Alcohol abuse with intoxication, unspecified (principal); E83.51 Hypocalcemia; I10 Essential (primary) hypertension; F41.9 Anxiety disorder, unspecified; E87.6 Hypokalemia; F32.9 Major depressive disorder, single episode, unspecified; E03.9 Hypothyroidism, unspecified; Z79.82 Long term (current) use of aspirin; Z79.84 Long term (current) use of oral hypoglycemic drugs; Z79.899 Other long term (current) drug therapy
CPT/HCPCS: 36415; 80053; 80305; 81001; 83735; 84100; 85025; 85610; 85730; 87081; 87086; 93005; 96372; 99285; A9153; G0482; J1650; J3411; J3475; J3490; J7030

== ENCOUNTER 2018-01-07 09:44 | Inpatient (IN) | payer OTHER ==
[~2018-01-07] VITALS: Ht 162.6 cm; Wt 102.1 kg
[~2018-01-07 09:44] MED LIST changes: -BACTO TP; +LIB25 PO; -[UNRECOGNIZED DRUG - CODE] PO
[2018-01-07 09:54] VITALS: BP 140/85
--- NOTE | 2018-01-07 09:55 | NUR ---
PT BIBA FOR 5150 TO BED 10
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
--- NOTE | 2018-01-07 10:15 | NUR ---
CALLED POISON CONTROL , SPOKE TO MARIBEL, GAVE REPORT REGARDING PATIENT , ADVISED TO MONITOR FOR 4-6 HOURS TO DRAW ASA, TYLENOL, AND BLOOD ALCOHOL LEVELS. DR. BEE WAS NOTIFIED.
[2018-01-07 10:35] LABS: BASOPHILS # (AUTO) 0.1 K/uL (0.00-0.22); EOSINOPHILS # (AUTO) 0.1 K/uL (0-0.4); EOSINOPHILS % (AUTO) 1.5 % (0.0-4.0); HEMATOCRIT 35.1 % (36-48); HEMOGLOBIN 11.6 g/dL (12.0-16.0); LYMPHOCYTES # (AUTO) 1.6 K/uL (2.5-16.5); LYMPHOCYTES % (AUTO) 46.2 % (20.5-51.1); MEAN CORPUSCULAR HEMOGLOBIN 29 pg (27-31); MEAN CORPUSCULAR HGB CONC 33 g/dL (33-37); MEAN CORPUSCULAR VOLUME 85.9 fL (80-94); MONOCYTES # (AUTO) 0.2 K/uL (0.8-1.0); MONOCYTES % (AUTO) 6.5 % (1.7-9.3); NEUTROPHILS # (AUTO) 1.5 K/uL (1.8-7.7); NEUTROPHILS % (AUTO) 43.8 % (42.2-75.2); PLATELET COUNT (AUTO) 217 K/uL (140-450); RED BLOOD CELL COUNT(AUTO) 4.08 MIL/uL (4.20-5.40); RED CELL DISTRIBUTION WIDTH 15.3 % (11.6-13.7); WHITE BLOOD COUNT (AUTO) 3.5 K/uL (4.8-10.8)
[2018-01-07 10:55] LABS: ANION GAP 13.4 (8-16); CARBON DIOXIDE 28.1 mmol/L (21-32); CHLORIDE 109 mmol/L (98-107); CREATININE 0.7 mg/dL (0.6-1.3); GFR ARICAN-AMERICAN 109 mL/min (>90); GLUCOSE 111 mg/dL (74-106); POTASSIUM 3.5 mmol/L (3.5-5.1); SODIUM SERUM 147 mmol/L (136-145); UREA NITROGEN, BLOOD 8 mg/dL (7-18)
[2018-01-07 11:01] LABS: ASPARTATE AMINOTRANSFERASE 14 U/L (15-37); TOTAL BILIRUBIN 0.2 mg/dL (0.0-1.0)
[2018-01-07 11:02] LABS: SALICYLATE < 2.8 mg/dL (2.8-20.0)
--- NOTE | 2018-01-07 11:07 | NUR ---
PT TAKEN TO CT VIA GURCYRUS ACCOMPANIED BY FEED RESEARCH TECHNICIAN.
--- NOTE | 2018-01-07 11:22 | NUR ---
PT RETURN FROM CT VIA GURNEY ACCOMPANIED BY DOCUMENT REVIEW ATTORNEY.
--- NOTE | 2018-01-07 11:23 | NUR ---
CANCEL URINE PREG PER DR JAIME.
--- NOTE | 2018-01-07 11:41 | NUR ---
PT. IN BED WITH HOB AT 45 DEGREES, SLEEPING , VSS. WILL CONTINUE TO MONITOR.
[2018-01-07 11:56] LABS: BARBITURATE, URINE NEG. ng/ml (NEG <=200); BENZODIAZEPINE, URINE NEG. ng/mL (NEG <=200); CANNABINOID, URINE NEG. ng/mL (NEG <=50); COCAINE, URINE NEG. ng/mL (NEG <=300); OPIATE, URINE NEG. ng/mL (NEG <=2000); PHENCYCLIDINE SCREEN,URINE NEG. ng/mL (NEG <=25)
[2018-01-07 11:58] LABS: APPEARANCE,URINE CLEAR (CLEAR); BILIRUBIN,URINE NEGATIVE (NEGATIVE); BLOOD, URINE 2+ (NEGATIVE); LEUKOCYTE ESTERASE ,URINE 1+ (NEGATIVE); NITRITE, URINE NEGATIVE (NEGATIVE); UGLUCOSE NEGATIVE (NEGATIVE)
[2018-01-07 12:08] LABS: COLOR,URINE STRAW (YELLOW)
[2018-01-07 12:31] LABS: RBC,URINE 0-5 (RARE) /HPF (0-5)
[2018-01-07 12:42] LABS: ACETAMINOPHEN < 0.5 ug/ml (10-30)
--- NOTE | 2018-01-07 13:16 | NUR ---
PT AAO X 4 ,VSS AT THIS TIME. RECEIVED CALLED FROM [facility] ;POISON CONTROL ASKED FOR TYLENOL & ASPIRINE LEVEL. NOTIFIED DR BEE.
--- NOTE | 2018-01-07 14:26 | NUR ---
PT. WAS PROVIDED WITH FOOD , EATING AND COMPLAINS OF ANXIETY DR. BEE NOTIFIED.
--- NOTE | 2018-01-07 15:12 | NUR ---
Agusto nair in EDM - 01/07/18 at 1514 by PHSCMAJ [facility] received referral. Fazed referral to [facility] @ for review.
--- NOTE | 2018-01-07 15:14 | NUR ---
[facility] received referral. Faxed referral to [facility] @ for review
--- NOTE | 2018-01-07 15:24 | NUR ---
[facility] received referral. Faxed referral to [facility] @ for review.
--- NOTE | 2018-01-07 15:26 | NUR ---
[facility] called [facility]. No beds available at this time. Faxed referral to for review.
[2018-01-07] MEDS ORDERED: KETOROLAC 30 MG/ML VIAL IVP ONE (16:55)
[2018-01-07] MEDS ORDERED: ONDANSETRON 4 MG/2 ML VIAL IVP ONE (16:55)
[2018-01-07] MEDS ORDERED: diphenhydrAMINE 50 MG/ML VIAL IVP ONE (16:55)
[2018-01-07] MEDS ORDERED: ONDANSETRON 4 MG/2 ML VIAL ONE (17:01)
--- NOTE | 2018-01-07 17:46 | NUR ---
PT IS SLEEPING, VSS, BED AT LOWEST POSITION, SIDERAILS X2 UP. WILL CONTINUE TO MONITOR.
--- NOTE | 2018-01-07 18:35 | NUR ---
PT. WANTED TO SPEAK TO HER SON, BUT DID NOT KNOW PHONE NUMBER,AND DID NOT HAVE HIS PHONE NUMBER . I SHOWED PATIENT THAT WE ONLY HAD CONTACT INFORMATION OF HER DAUGHTERS IN FACE SHEET, AND PT DENIED WANTING TO CALL AND SPEAK TO THEM.
--- NOTE | 2018-01-07 18:45 | NUR ---
PT. C/O OF BEING ANXIOUS DR. BEE MADE AWARE , NO NEW MEDICATION ORDERS GIVEN .
--- NOTE | 2018-01-07 18:55 | NUR ---
PT STATED WANT TO SLEEP & WANT MED FOR SLEEPING . NOTIFIED DR BEE; NO NEW ORDER AT THIS TIME.
--- NOTE | 2018-01-07 19:08 | NUR ---
Pt report given to ADRIEL. Transfer of care at this time.
--- NOTE | 2018-01-07 19:10 | NUR ---
RECEIVED REPORT FROM AM NURSE. PT RESTING IN BED, PT CRYING AND ANXIOUS AT THIS TIME. RR EVEN AND UNLABORED. ALL NEEDS MET. 1:1 SITTER MAINTAINED, ENVIRONENT CHECKED, SAFETY MEASURES ENSURED.
[2018-01-07] MEDS ORDERED: ACETAMINOPHEN 325 MG TAB PO PRN (19:45)
[2018-01-07] MEDS ORDERED: cloNIDine 0.1 MG TAB PO PRN (19:45)
[2018-01-07] MEDS ORDERED: HYDROcodone/APAP 5/325 MG 1 TAB TAB PO PRN (19:45)
[2018-01-07] MEDS ORDERED: ONDANSETRON 4 MG/2 ML VIAL IVP PRN (19:45)
[2018-01-07] MEDS ORDERED: chlordiazePOXIDE 25 MG CAP PO PRN (19:55)
[2018-01-07] MEDS ORDERED: INSULIN LISPRO SLIDING SCALE 100 UNITS/ML VIAL SUBQ PRN (19:55)
[2018-01-07] MEDS ORDERED: DEXTROSE 50% 50 ML SYR IVP PRN (19:55)
--- NOTE | 2018-01-07 20:10 | NUR ---
PT ARRIVED TO THE UNIT VIA WC WITH LEAD GENERATION REPRESENTATIVE. WILL ADMIT PT.
--- NOTE | 2018-01-07 20:11 | NUR ---
Patient will be admitted to [facility]. Admited to ICU. Will go to room6. Belongings list completed, belongings with security. Report to GUSTAVO PERERA AT BEDSIDE.
[2018-01-07 20:15] VITALS: BP 154/87
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
[2018-01-07] MEDS ORDERED: chlordiazePOXIDE 25 MG CAP ONE (20:42)
--- NOTE | 2018-01-07 20:45 | NUR ---
PT SCREAMING FOR FEELING ANXIOUS AND ASKING FOR ANXIETY MEDICINE. ENCOURAGED RELAXATION TECHNIQUE. ORDERS NOT VERIFIED YET BY [facility]. CHARGE NURSE AND HS MADE AWARE AND OVERWRITE CHLORDIAZEPOXIDE 25MG. ADMINISTERED MED ORDERED. WILL CONTINUE TO MONITOR.
--- NOTE | 2018-01-07 21:23 | NUR ---
RECEIVED A CALL FROM DR. MEYER, ON-CALL FOR DR. ALONZO. REPORTED PT BEING FEELING ANXIOUS AND AGITATED AND ADMITTING DX AND 5150 STATUS. NEW ORDER RECEIVED WILL FOLLOW UP.
[2018-01-07] MEDS: ATORVASTATIN 20 MG TAB PO SCH (21:26)
[2018-01-07] MEDS: BLOOD GLUCOSE MONITORING 1 DEV DEV FS SCH (21:26)
[2018-01-07] MEDS ORDERED: LORazepam 2 MG/ML VIAL IVP PRN (21:35)
[2018-01-07] MEDS ORDERED: MULTIVITAMIN-12 10 ML, THIAMINE 100 MG, MAGNESIUM SULFATE 50% 2,000 MG, FOLIC ACID 5 MG... IV SCH ×10 (21:35→22:00)
[2018-01-07] MEDS: QUEtiapine FUMARATE 100 MG TAB PO SCH (21:55)
[2018-01-07] MEDS ORDERED: FOLIC ACID 5 MG/ML SYR ONE (21:56)
[2018-01-07] MEDS ORDERED: MAG SULF 2000 MG/WATER PREMIX 0 ML IV ONE (21:58)
[2018-01-07] MEDS ORDERED: MAGNESIUM SULFATE 50% 1000 MG/2 ML VIAL IV ONE (22:00)
[2018-01-07] MEDS ORDERED: MULTIVITAMIN-12 10 ML VIAL IV ONE (22:01)
[2018-01-07] MEDS ORDERED: cefTRIAXone 1,000 MG VIAL ONE (22:02)
[2018-01-07] MEDS ORDERED: THIAMINE 200 MG/2 ML VIAL ONE (22:10)
--- NOTE | 2018-01-07 22:37 | NUR ---
BANANA BAG AND ROCEPHIN IV HAVE STARTED. PT DENIES FEELING ANXIOUS AND DENIES OF SUICIDAL IDEATION AT THIS TIME. ALL SAFETY PRECAUTIONS ARE IN PLACE. WILL CONTINUE TO MONITOR.
--- NOTE | 2018-01-07 23:26 | NUR ---
PT C/O FEELING ANXIOUS. VS STABLE. ENCOURAGE RELAXATION TECHNIQUE. ASSISTED WITH BED SIDE COMMODE FOR URINE AND BACK TO BED. WILL CONTINUE TO MONITOR.
--- NOTE | 2018-01-07 23:45 | NUR ---
PT RESTING AT THIS TIME. VS STABLE. ALL SAFETY PRECAUTIONS ARE IN PLACE. WILL CONTINUE TO MONITOR.
[2018-01-08] VITALS (7 sets, daily range): BP systolic 101–134; BP diastolic 48–80
--- NOTE | 2018-01-08 00:43 | NUR ---
PT ASLEEP WITHOUT ACUTE DISTRESS. VSS. RR EVEN AND UNLABORED. BANANA BAG CONTINUING TO INFUSE. IV SITE TO LEFT AC PATENT AND ASYMPTOMATIC. ALL SAFETY PRECAUTIONS ARE IN PLACE. WILL CONTINUE TO MONITOR.
--- NOTE | 2018-01-08 02:36 | NUR ---
PT ASLEEP. NO S/SX OF PAIN OR DISCOMFORT. ALL SAFETY PRECAUTIONS ARE IN PLACE. WILL CONTINUE TO MONITOR.
--- NOTE | 2018-01-08 04:00 | NUR ---
PT ASLEEP. NO S/SX OF PAIN OR DISCOMFORT. VS STABLE. ALL SAFETY PRECAUTIONS ARE IN PLACE.
--- NOTE | 2018-01-08 04:50 | NUR ---
GRINDER BRAKE LINING AT BED SIDE AT THIS TIME.
--- NOTE | 2018-01-08 06:00 | NUR ---
PT ASLEEP. VS STABLE. NO S/SX OF PAIN OR DISCOMFORT. RR EVEN AND UNLABORED. ALL SAFETY PRECAUTIONS ARE IN PLACE. WILL CONTINUE TO MONITOR.
[2018-01-08] MEDS ORDERED: LEVOTHYROXINE 0.075 MG TAB PO SCH (06:30)
[2018-01-08] MEDS: BLOOD GLUCOSE MONITORING 1 DEV DEV FS SCH ×4 (06:45→20:14)
--- NOTE | 2018-01-08 07:10 | NUR ---
REPORT GIVEN TO MORNING RN FOR CONTINUITY OF CARE. VS STABLE. PT DENIES PAIN OR DISCOMFORT. AFEBRILE. PT DENIES OF SUICIDAL IDEATION. ALL SAFETY PRECAUTIONS ARE IN PLACE FOR SUICIDAL IDEATION PRECAUTIONS.
[2018-01-08 07:25] LABS: ALBUMIN 2.9 g/dL (3.4-5.0); ANION GAP 12.7 (8-16); CARBON DIOXIDE 27.3 mmol/L (21-32); CREATININE 0.8 mg/dL (0.6-1.3); MAGNESIUM 2.6 mg/dL (1.8-2.4); TOTAL BILIRUBIN 0.5 mg/dL (0.0-1.0)
--- NOTE | 2018-01-08 07:30 | NUR ---
RECEIVED PT FROM ADVISORY APPLICATION DEVELOPER RN, PT SLEEPING BUT AROUSABLE. INTRODUCED MYSELF. NO S/S OF RESPIRATORY DISTRESS NOTED. PT HAS IV RUNNING NS AT TKO 5 MLS/HR, SITE INTACT AND PATENT. PT STATED NO PLAN TO HURT HERSELF OR OTHERS. POC EXPLAINED TO PT, PT VERBALIZED UNDERSTANDING, WILL CONTINUE TO MONITOR.
--- NOTE | 2018-01-08 08:45 | NUR ---
CALLED DR. FELICIANO, NOTIFIED LAB REPORT MAG 2.6
[2018-01-08] MEDS ORDERED: LISINOPRIL 20 MG TAB PO SCH (09:00)
[2018-01-08] MEDS ORDERED: ASPIRIN 81 MG TAB.CHEW PO SCH (09:00)
[2018-01-08] MEDS: metFORMIN 500 MG TAB PO SCH ×2 (09:22→16:34)
[2018-01-08] MEDS: QUEtiapine FUMARATE 100 MG TAB PO SCH ×2 (09:23→20:10)
--- NOTE | 2018-01-08 09:42 | NUR ---
CALLED FOR CONSUL AND VOICE MSG LEFT, FACE SHEET FAXED.
--- NOTE | 2018-01-08 10:28 | NUR ---
PATIENT HAS BEEN SCREENED AND CATEGORIZED LOW NUTRITION RISK. PATIENT WILL BE SEEN WITHIN 7 DAYS OF ADMISSION. 01/14/[address]
[2018-01-08] MEDS ORDERED: PROBIOTIC SCREEN 1 EA MISC MC PRN (13:15)
--- NOTE | 2018-01-08 13:22 | NUR ---
CM NOTE INITIAL REVIEW FAXED TO [facility] [phone] CARRIE # [phone]
--- NOTE | 2018-01-08 14:15 | NUR ---
[facility] aware of patient and will continue to assist with placement. The following facilities were contacted and packet faxed for review to: [facility], [facility]
--- NOTE | 2018-01-08 15:54 | NUR ---
PT SLEEPING IN BED QUIETLY, NO S/S OF RESPIRATORY DISTRESS NOTED.
--- NOTE | 2018-01-08 17:30 | NUR ---
DINNER TRAY SERVED. PT ATE MAJORITY OF THE FOOD.
--- NOTE | 2018-01-08 19:10 | NUR ---
ASSUMED CARE OF PT.INITIAL ASSESSMENT COMPLETED.PT AWAKE ALERT AND ORIENTED X4.SR ON MONITOR.ON ROOM AIR.TOLERATING.NO SOB NOTED.CHEST CLEAR.ABDOMEN SOFT WITH +BOWEL SOUNDS TO ALL QUADRANTS.PT ABLE TO VOID FREELY.SKIN INTACT.PT DENIES PAIN.
--- NOTE | 2018-01-08 19:23 | NUR ---
PHONE CALL TO DR ALONZO; INFORMED THAT PT WAS SEEN BY DR BROUSSARD AND ONCE MEDICALLY CLEARED CAN BE DISCHARGED TO HOME.ALSO READ BACK TO DR ALONZO RE;X RAY OF RIBS; SAID OK TO DC PT TO HOME.
[2018-01-08] MEDS: ATORVASTATIN 20 MG TAB PO SCH (20:10)
--- NOTE | 2018-01-08 20:40 | NUR ---
PTS FRIEND LEANN MENDEZ IN THE UNIT TO TAKE PT HOME.ALL DC PAPERS SIGNED.PTS EDUCATION PAPER GIVEN TO PT.NO BELONGINGS. INSTRUCTED PT TO FOLLOW UP WITH HER PCP AND PSYCHIATRIST.PT VERBALIZED UNDERSTANDING. DC TO HOME VIA PRIVATE CAR IN STABLE CONDITION.
[2018-01-09] MEDS ORDERED: LACTOBACILLUS RHAMNOSUS GG 1 EACH CAP PO SCH (09:00)
== END 2018-01-08 20:40 | disposition home or self-care (01) | DRG 816 ==
LOC: MED 09:44 → MIC 19:51
PROVIDERS: ADMIT Hospitalist; ATTEND Hospitalist
DX: T51.0X2A Toxic effect of ethanol, intentional self-harm, initial encounter (principal); E43 Unspecified severe protein-calorie malnutrition; R45.851 Suicidal ideations; F33.1 Major depressive disorder, recurrent, moderate; I10 Essential (primary) hypertension; F10.229 Alcohol dependence with intoxication, unspecified; T42.4X2A Poisoning by benzodiazepines, intentional self-harm, initial encounter; E11.9 Type 2 diabetes mellitus without complications; E03.9 Hypothyroidism, unspecified; E78.00 Pure hypercholesterolemia, unspecified; E78.5 Hyperlipidemia, unspecified; F41.0 Panic disorder [episodic paroxysmal anxiety]; F41.9 Anxiety disorder, unspecified; Y90.6 Blood alcohol level of 120-199 mg/100 ml; Z79.4 Long term (current) use of insulin; Z98.891 History of uterine scar from previous surgery; Z90.49 Acquired absence of other specified parts of digestive tract; Y92.89 Other specified places as the place of occurrence of the external cause
CPT/HCPCS: 36415; 70450; 71045; 71111; 80053; 80305; 81001; 81025; 82550; 82948; 83735; 84484; 85025; 87081; 87086; 87186; 93005; 96374; 96375; 99285; A9153; G0480; G0482; J0696; J1200; J1815; J1885; J2060; J2405; J3411; J3475; J3490; J7030; J7060; Q0092

== ENCOUNTER 2018-05-14 08:37 | Inpatient (IN) | payer OTHER ==
[~2018-05-14] VITALS: Ht 165.1 cm; Wt 99.3 kg
[~2018-05-14 08:37] MED LIST changes: +THIA-34 PO; -THIA100T31 PO
--- NOTE | 2018-05-14 08:40 | NUR ---
report given to GUSTAVO Michael
[2018-05-14 08:43] VITALS: BP 134/79
[2018-05-14] MEDS ORDERED: MULTIVITAMIN-12 10 ML, THIAMINE 100 MG, MAGNESIUM SULFATE 50% 2,000 MG, FOLIC ACID 5 MG... IV ONE ×5 (08:45)
[2018-05-14] MEDS ORDERED: diphenhydrAMINE 50 MG/ML VIAL IVP ONE ×2 (08:45→11:35)
[2018-05-14] MEDS ORDERED: ONDANSETRON 4 MG/2 ML VIAL IVP ONE (08:45)
--- NOTE | 2018-05-14 08:45 | NUR ---
63Y/F BIBA FOR ETOH INTOXICATION, POSSIBLE ANXIETY ATTACK. PT AAOX4, SMELLS STRONGLY OF ETOH. PT REPORTS THAT SHE HAS BEEN DRINKING, "LOTS AND LOTS OF WHISKEY FOR PAST 7 DAYS". CMS INTACT. RR EVEN AND UNLABORED. PT FEELS NAUSEOUS, BUT NO VOMITING AT THIS TIME. ER MD AT BEDSIDE. PATIENT STATES PAIN OF 10/10 AT THIS TIME; VSS; PATIENT POSITIONED FOR COMFORT; HOB ELEVATED; BEDRAILS UP X1; BED DOWN. ER MD MADE AWARE OF PT STATUS. HX: HYPERTHYROIDISM, HTN, ANXIETY/DEPRESSION RX: LISINOPRIL (NON-COMPLIANT), LORAZEPAM
[2018-05-14] MEDS ORDERED: NACL 0.9% 1,000 ML IV ONE (08:55)
--- NOTE | 2018-05-14 09:00 | NUR ---
PT STATES "SHE WANT TO ", AWARE AND NOTIFIED; TELEPSYCH IS SET UP FOR PT AT THIS TIME; WAITING FOR TLEPSYCH TO CALL IN TO TALK TO PT.
[2018-05-14] MEDS ORDERED: MULTIVITAMIN-12 10 ML, THIAMINE 100 MG, FOLIC ACID 5 MG in NACL 0.9% 1,000 ML IV ONE (09:05)
[2018-05-14 09:20] LABS: BASOPHILS # (AUTO) 0.1 K/uL (0.00-0.22); BASOPHILS % (AUTO) 2.2 % (0.0-2.0); EOSINOPHILS % (AUTO) 0.6 % (0.0-4.0); HEMOGLOBIN 12.2 g/dL (12.0-16.0); LYMPHOCYTES # (AUTO) 1.5 K/uL (2.5-16.5); LYMPHOCYTES % (AUTO) 46.4 % (20.5-51.1); MEAN CORPUSCULAR HEMOGLOBIN 28 pg (27-31); MEAN CORPUSCULAR HGB CONC 32 g/dL (33-37); MEAN CORPUSCULAR VOLUME 86.8 fL (80-94); MONOCYTES # (AUTO) 0.2 K/uL (0.8-1.0); NEUTROPHILS # (AUTO) 1.4 K/uL (1.8-7.7); NEUTROPHILS % (AUTO) 44.8 % (42.2-75.2); PLATELET COUNT (AUTO) 190 K/uL (140-450); RED BLOOD CELL COUNT(AUTO) 4.39 MIL/uL (4.20-5.40); RED CELL DISTRIBUTION WIDTH 16.2 % (11.6-13.7); WHITE BLOOD COUNT (AUTO) 3.1 K/uL (4.8-10.8)
[2018-05-14 09:42] LABS: ANION GAP 13.5 (8-16); CARBON DIOXIDE 27.9 mmol/L (21-32); CREATININE 0.7 mg/dL (0.6-1.3); POTASSIUM 3.4 mmol/L (3.5-5.1)
[2018-05-14 09:42] LABS: BILIRUBIN,URINE NEGATIVE (NEGATIVE); BLOOD, URINE TRACE-I (NEGATIVE); LEUKOCYTE ESTERASE ,URINE SMALL (NEGATIVE); NITRITE, URINE NEGATIVE (NEGATIVE); UGLUCOSE NEGATIVE (NEGATIVE)
[2018-05-14 09:48] LABS: ALBUMIN 3.7 g/dL (3.4-5.0); TOTAL BILIRUBIN 0.4 mg/dL (0.0-1.0)
[2018-05-14 09:49] LABS: BARBITURATE, URINE NEG. ng/ml (NEG <=200); BENZODIAZEPINE, URINE NEG. ng/mL (NEG <=200); CANNABINOID, URINE NEG. ng/mL (NEG <=50); COCAINE, URINE NEG. ng/mL (NEG <=300); OPIATE, URINE NEG. ng/mL (NEG <=2000); PHENCYCLIDINE SCREEN,URINE NEG. ng/mL (NEG <=25)
[2018-05-14 09:53] LABS: APPEARANCE,URINE HAZY (CLEAR); COLOR,URINE YELLOW (YELLOW)
[2018-05-14 09:54] LABS: RBC,URINE 0-5 (RARE) /HPF (0-5)
--- NOTE | 2018-05-14 10:56 | NUR ---
PT IS TALKING TO TELEPSYCH DR AT THIS TIME
[2018-05-14] MEDS ORDERED: FAMOTIDINE 20 MG/2 ML VIAL IVP ONE (11:00)
--- NOTE | 2018-05-14 11:02 | NUR ---
PT IS DONE TALKING TO TELESPYCH DR. CABRERA
--- NOTE | 2018-05-14 11:03 | NUR ---
TALKED TO TELEPSYCH DR. ROMEO AND DR CHAVEZ PT BE PUT ON A 5150 HOLD. CARA FLORIAN RN AND DR SMITH NOTIFIED AND AWARE OF TELEPSYCH DR TOM.
[2018-05-14] MEDS ORDERED: LORazepam 2 MG/ML VIAL IVP ONE ×2 (12:10→15:45)
--- NOTE | 2018-05-14 12:21 | NUR ---
Patient transferred to bed 4 for further care. RN re-evaluating patient at bedside.
--- NOTE | 2018-05-14 13:11 | NUR ---
pt is resting in bed at this time; vss; sitter at bedside
--- NOTE | 2018-05-14 15:08 | NUR ---
pt is awake, up in bed, eating at this time. sitter at bedside, vss at this time
--- NOTE | 2018-05-14 16:30 | NUR ---
Called [facility] s[facility]w [facility]. No beds. Packet faxed to [facility] for review. Packet faxed to [facility] for review.
[2018-05-14] MEDS ORDERED: LORazepam 2 MG/ML VIAL IVP PRN (16:35)
[2018-05-14] MEDS ORDERED: ACETAMINOPHEN 325 MG TAB PO PRN (16:35)
[2018-05-14] MEDS ORDERED: MORPHINE SULFATE 2 MG/ML SYR IVP PRN (16:35)
[2018-05-14] MEDS ORDERED: INSULIN LISPRO SLIDING SCALE 100 UNITS/ML VIAL SUBQ PRN (16:35)
[2018-05-14] MEDS ORDERED: ONDANSETRON 4 MG/2 ML VIAL IVP PRN (16:35)
--- NOTE | 2018-05-14 16:53 | NUR ---
Notified Dr. Johnson of psychiatric consult. Patient's face sheet faxed to Dr. Sanchez's office.
--- NOTE | 2018-05-14 17:19 | NUR ---
Dr. Johnson evaluating patient at bedside.
--- NOTE | 2018-05-14 17:37 | NUR ---
PT SITTING UP IN BED TALKING TO FRIEND AND EATING DINNER AT THIS TIME; VSS; EVEN AND UNLABORED BREATHING.
--- NOTE | 2018-05-14 18:18 | NUR ---
Patient will be admitted to care of DR. MANDUJANO. Admited to MED SURG. Will go to room 113. Belongings list completed. Report to GUSTAVO BEEBE.
--- NOTE | 2018-05-14 18:30 | NUR ---
RECEIVED PT REPORT FROM ER NURSE KAYLEIGH. DX ETOH WITHDRAW. IV NOTED TO LEFT AC 20 G. MRSA SWAB WAS DONE. VITALS TAKEN. PT HAS NO C/O PAIN. BED IN LOWEST POSITION WITH SIDE RAILS UP X2. CALL LIGHT IS WITHIN REACH. WILL CONTINUE TO MONITOR.
--- NOTE | 2018-05-14 18:32 | NUR ---
VITALS BP151/86, HR 80, RR 18, O2 SAT 95%. TEMP 98.4
--- NOTE | 2018-05-14 18:50 | NUR ---
SPOKE WITH CHERI RANDHAWA TO CONTINUE SEROQUEL 200MG BID. MADE AWARE PT HAS BEEN CLEARED BY CHERI COWAN TO REMOVED 5150 FROM ADMIT ORDER.
--- NOTE | 2018-05-14 19:20 | NUR ---
REPORT GIVEN TO MACHINE BANDER AND CELLOPHANER RN. PT IN STABLE CONDITION. PT C/O NERVOUSNESS. WILL ADMINISTER ATIVAN ORDERED.
--- NOTE | 2018-05-14 19:25 | NUR ---
RECEIVED PATIENT ASLEEP ON BED. FALL PRECAUTION APPLIED. PATIENT BULGARIAN SPEAKING PATIENT. ADMISSION CARE DONE AND CARRY OUT ORDERS.PERSONAL BELONGINGS ON PATIENT BEDSIDE CABINET. MRSA SWAB DONE. CALL LIGHT WITHIN REACH. WILL CONTINUE TO MONITOR.
[2018-05-14] MEDS ORDERED: NON-FORMULARY ITEM (Atorvastatin Calcium 20 MG) PO SCH (21:00)
[2018-05-14] MEDS ORDERED: ATORVASTATIN 20 MG TAB PO SCH (21:00)
--- NOTE | 2018-05-14 21:00 | NUR ---
MEDICATION GIVEN. BS TAKEN AND DONE. NO COVERAGE. FALL PRECAUTION APPLIED. CALL LIGHT WITHIN REACH. WILL CONTINUE TO MONITOR.
[2018-05-14] MEDS: BLOOD GLUCOSE MONITORING 1 DEV DEV FS SCH (21:18)
[2018-05-14] MEDS: QUEtiapine FUMARATE 100 MG TAB PO SCH (21:18)
[2018-05-15] VITALS: BP 113/53
--- NOTE | 2018-05-15 | NUR ---
V/S TAKEN AND RECORDED. SEEN PATIENT ASLEEP. NO S/S OF DISTRESS NOTED AT THIS TIME. WILL CONTINUE TO MONITOR.
--- NOTE | 2018-05-15 02:45 | NUR ---
SEEN PATIENT ASLEEP ON BED. NO SIGN OF DISTRESS NOTED AT THIS TIME. CALL LIGHT WITHIN REACH. WILL CONTINUE TO MONITOR.
[2018-05-15 06:08] LABS: BASOPHILS % (AUTO) 0.9 % (0.0-2.0); EOSINOPHILS % (AUTO) 0.8 % (0.0-4.0); HEMOGLOBIN 11.1 g/dL (12.0-16.0); LYMPHOCYTES % (AUTO) 20.5 % (20.5-51.1); MEAN CORPUSCULAR HEMOGLOBIN 28 pg (27-31); MEAN CORPUSCULAR HGB CONC 33 g/dL (33-37); MEAN CORPUSCULAR VOLUME 86.2 fL (80-94); MONOCYTES # (AUTO) 0.5 K/uL (0.8-1.0); MONOCYTES % (AUTO) 10.5 % (1.7-9.3); NEUTROPHILS # (AUTO) 3.1 K/uL (1.8-7.7); NEUTROPHILS % (AUTO) 67.3 % (42.2-75.2); PLATELET COUNT (AUTO) 145 K/uL (140-450); RED BLOOD CELL COUNT(AUTO) 3.95 MIL/uL (4.20-5.40); RED CELL DISTRIBUTION WIDTH 15.9 % (11.6-13.7); WHITE BLOOD COUNT (AUTO) 4.6 K/uL (4.8-10.8)
[2018-05-15] MEDS: BLOOD GLUCOSE MONITORING 1 DEV DEV FS SCH ×3 (06:27→16:30)
[2018-05-15] MEDS ORDERED: LEVOTHYROXINE 0.05 MG TAB PO SCH (06:30)
[2018-05-15] MEDS ORDERED: LEVOTHYROXINE 0.075 MG TAB PO SCH ×2 (06:30)
[2018-05-15 06:52] LABS: ALBUMIN 3.5 g/dL (3.4-5.0); CARBON DIOXIDE 28.6 mmol/L (21-32); CREATININE 0.8 mg/dL (0.6-1.3); POTASSIUM 3.6 mmol/L (3.5-5.1); TOTAL BILIRUBIN 1.1 mg/dL (0.0-1.0)
--- NOTE | 2018-05-15 07:10 | NUR ---
ENDORSEMENT GIVEN TO AM SHIFT NURSE AT BEDSIDE FOR CONTINUITY OF CARE. PATIENT IN STABLE CONDITION.
--- NOTE | 2018-05-15 07:15 | NUR ---
RECEIVED PT FROM TAXICAB COORDINATOR NURSE, PT IS AWAKE AND LYING ON THE BED SIDE RAILS UP AND CALL LIGHT WITHIN REACH, PT HAS AN IV LINE ON THE LEFT AC G.20 ON SALINE LOCK, INTACT. NO SIGN OF DISTRESS NOTED ON THE PT, RESPIRATIONS EVEN AND WILL CONTINUE TO MONITOR.
[2018-05-15 08:00] VITALS: BP 130/63
--- NOTE | 2018-05-15 08:45 | NUR ---
PT IS AWKE AND VITAL SIGNS TAKEN AND IS STABLE. NO SIGN OF DISTRESS NOTED AND WILL CONTINUE TO MONITOR.
[2018-05-15] MEDS ORDERED: CALCIUM CARBONATE PO SCH (09:00)
[2018-05-15] MEDS ORDERED: CALCIUM CARB/VIT-D 500 MG/200 IU 1 TAB PO SCH (09:00)
[2018-05-15] MEDS ORDERED: NON-FORMULARY ITEM (Aspirin 81 MG) PO SCH (09:00)
[2018-05-15] MEDS ORDERED: NON-FORMULARY ITEM (Folic Acid 1 MG) PO SCH (09:00)
[2018-05-15] MEDS ORDERED: PANTOPRAZOLE 40 MG INJ VIAL IVP SCH (09:00)
[2018-05-15] MEDS ORDERED: FOLIC ACID 1 MG TAB PO SCH (09:00)
[2018-05-15] MEDS ORDERED: ASPIRIN 81 MG TAB.CHEW PO SCH (09:00)
[2018-05-15] MEDS ORDERED: LISINOPRIL 20 MG TAB PO SCH (09:00)
[2018-05-15] MEDS ORDERED: ENOXAPARIN 30 MG/0.3 ML SYR SUBQ SCH (09:00)
[2018-05-15] MEDS ORDERED: VITAMIN D3 PO SCH (09:00)
[2018-05-15] MEDS ORDERED: NON-FORMULARY ITEM (Lisinopril 40 MG) PO SCH (09:00)
[2018-05-15] MEDS ORDERED: [UNRECOGNIZED DRUG - OTHER] PO SCH (09:00)
[2018-05-15] MEDS: QUEtiapine FUMARATE 100 MG TAB PO SCH (09:53)
--- NOTE | 2018-05-15 09:55 | NUR ---
PT IS AWAKE AND SEATED ON THE BED, ASSISTED TO THE BATHROOM. VITAL SIGNS CHECKED AND MEDICATIONS WERE GIVEN AND PT TOLERATED IT. NO SIGN OF DISTRESS NOTED. WILL CONTINUE TO MONITOR.
[2018-05-15] MEDS ORDERED: MULTIVITAMIN-12 10 ML, THIAMINE 100 MG, FOLIC ACID 1 MG in NACL 0.9% 1,000 ML IV ONE (11:00)
--- NOTE | 2018-05-15 11:21 | NUR ---
PATIENT HAS BEEN SCREENED AND CATEGORIZED MODERATE NUTRITION RISK. PATIENT WILL BE SEEN WITHIN 3-5 DAYS OF ADMISSION. 05/17/18 -05/19/[address]
--- NOTE | 2018-05-15 13:50 | NUR ---
DR. MANDUJANO CAME TO THE PT'S ROOM AND SPOKE TO THE PT AND TOLD THE PT THAT SHE WILL BE DISCHARGE AND HAS TO SEE HER PCP WITHIN ONE WEEK OF DISCHARGE, PT VERBALIZED UNDERSTANDING.
--- NOTE | 2018-05-15 14:00 | NUR ---
ACKNOWLEDGED A DISCHARGE OR ZEKE FRO THE PT FROM DR. MANDUJANO. WILL FACILITATE DISCHARGE PROCESS.
--- NOTE | 2018-05-15 14:00 | NUR ---
CM NOTE INITIAL REVIEW FAXED TO [facility] [phone] CARRIE # [phone]
[2018-05-15 16:00] VITALS: BP 121/62
--- NOTE | 2018-05-15 16:35 | NUR ---
DISCHARGED PT VIA WHEELCHAIR ACCOMPANIED BY THE NEIGHBOR AND STEPHANIE ROSSI. DISCHARGED INSTRUCTIONS AND TEACHINGS GIVEN AND PT VERBALIZED UNDERSTANDING. ARM BAND AND IV LINE REMOVED. TP IS STABLE AT THIS TIME.
== END 2018-05-15 16:35 | disposition home or self-care (01) | DRG 425 ==
LOC: MED 08:37 → MTU 16:41
PROVIDERS: ADMIT Hospitalist; ATTEND Hospitalist
DX: E83.51 Hypocalcemia (principal); R45.851 Suicidal ideations; F41.1 Generalized anxiety disorder; F33.9 Major depressive disorder, recurrent, unspecified; I10 Essential (primary) hypertension; E11.9 Type 2 diabetes mellitus without complications; E03.9 Hypothyroidism, unspecified; F10.10 Alcohol abuse, uncomplicated; E87.6 Hypokalemia; Z79.899 Other long term (current) drug therapy; Z79.82 Long term (current) use of aspirin; Z91.19 Patient's noncompliance with other medical treatment and regimen
CPT/HCPCS: 36415; 80053; 80305; 81001; 82948; 84443; 85025; 87081; 87086; 96361; 96365; 96366; 96375; 99285; A9153; C9113; G0482; J1200; J1650; J1815; J2060; J2405; J3411; J3490; J7030

== ENCOUNTER 2018-12-20 12:59 | Emergency (ER) | payer OTHER ==
[~2018-12-20] VITALS: Ht 165.1 cm; Wt 104.3 kg
[~2018-12-20 12:59] MED LIST changes: +CALC-55 PO; -CALC-846 PO
--- NOTE | 2018-12-20 13:01 | NUR ---
PT BIBA BLS TO BED 11
[2018-12-20 13:10] VITALS: BP 105/70
--- NOTE | 2018-12-20 13:15 | NUR ---
Erica, per truss driver helper, roommate called 911 because patient has been unruly in the house and uncooperative. pt has been drinking vodka. pt is calm is cooperative, restraints removed.pt was up talking and asking questions, hob up, bed down, locked. bedrails up x1. vss. will continue to monitor. hx: htn,hypothyroidsm. taking lisinopril 40mg. po daily,synthroid 150 mcg. po daily
--- NOTE | 2018-12-20 15:02 | NUR ---
Patient being evaluated by physician at bedside.
[2018-12-20] MEDS ORDERED: NACL 0.9% 1,000 ML IV ONE (15:05)
--- NOTE | 2018-12-20 15:15 | NUR ---
lab at bedside
[2018-12-20 15:33] LABS: ANION GAP 15.9 (8-16); CARBON DIOXIDE 25.2 mmol/L (21-32); CREATININE 0.8 mg/dL (0.6-1.3); POTASSIUM 3.1 mmol/L (3.5-5.1)
[2018-12-20 15:39] LABS: ALBUMIN 3.6 g/dL (3.4-5.0); TOTAL BILIRUBIN 0.6 mg/dL (0.0-1.0)
[2018-12-20 16:48] LABS: BARBITURATE, URINE NEG. ng/ml (NEG <=200); BENZODIAZEPINE, URINE NEG. ng/mL (NEG <=200); CANNABINOID, URINE NEG. ng/mL (NEG <=50); COCAINE, URINE NEG. ng/mL (NEG <=300); OPIATE, URINE NEG. ng/mL (NEG <=2000); PHENCYCLIDINE SCREEN,URINE NEG. ng/mL (NEG <=25)
[2018-12-20 17:59] VITALS: BP 118/68
--- NOTE | 2018-12-20 17:59 | NUR ---
Patient discharged with v/s stable. Written and verbal after care instructions given and explained. Patient verbalized understanding. Ambulatory with steady gait. All questions addressed prior to discharge. Advised to follow up with PMD. Patient given voucher
== END 2018-12-20 17:59 | disposition home or self-care (01) ==
LOC: MED 12:59
DX: F10.129 Alcohol abuse with intoxication, unspecified (principal); I10 Essential (primary) hypertension; E11.9 Type 2 diabetes mellitus without complications; Y90.8 Blood alcohol level of 240 mg/100 ml or more; E03.9 Hypothyroidism, unspecified; Z79.82 Long term (current) use of aspirin; Z79.84 Long term (current) use of oral hypoglycemic drugs; Z79.899 Other long term (current) drug therapy
CPT/HCPCS: 36415; 80053; 80305; 99283; G0482; J7030

== ENCOUNTER 2019-08-24 02:40 | Inpatient (IN) | payer OTHER ==
[~2019-08-24] VITALS: Ht 160 cm; Wt 98.4 kg
[2019-08-24 02:50] VITALS: BP 124/75
--- NOTE | 2019-08-24 02:50 | NUR ---
BIBA TO BED #12
--- NOTE | 2019-08-24 02:55 | NUR ---
64 Y/O F, BIBA. PER EMS, FAMILY REPORTS PATIENT BINGE DRINKS AND DRANK 1 WHOLE BOTTLE OF AUSTEN HUGHES TODAY. PATIENT IS ALOC. PATIENT IS CONFUSED, ALERT TO NAME ONLY, CANNOT STATE OWN BIRTHDAY. CONTINUES TO CRY OUT "HELP ME" PATIENT UNABLE TO ANSWER QUESTIONS. AMBULATES TO BED FROM GURNEY, GAIT IS UNSTABLE. PATIENT ATTEMPTING TO VOMIT BUT ONLY DRY HEAVES. BEDRAILS UP x2, BED IN LOCKED POSITION, WILL CONTINUE TO MONITOR.
--- NOTE | 2019-08-24 03:01 | NUR ---
PT MOVED BY RAY TO BED #9
[2019-08-24] MEDS ORDERED: ONDANSETRON 4 MG/2 ML VIAL IVP ONE (03:05)
[2019-08-24] MEDS ORDERED: MULTIVITAMIN-12 10 ML, THIAMINE 100 MG, MAGNESIUM SULFATE 50% 2,000 MG, FOLIC ACID 1 MG... IV SCH ×5 (03:05)
[2019-08-24 03:22] LABS: BASOPHILS % (AUTO) 0.5 % (0.0-2.0); HEMATOCRIT 41.4 % (36-48); HEMOGLOBIN 13.7 g/dL (12.0-16.0); LYMPHOCYTES # (AUTO) 2.7 K/uL (2.5-16.5); LYMPHOCYTES % (AUTO) 30.4 % (20.5-51.1); MEAN CORPUSCULAR HEMOGLOBIN 29 pg (27-31); MEAN CORPUSCULAR HGB CONC 33 g/dL (33-37); MEAN CORPUSCULAR VOLUME 87.6 fL (80-94); MONOCYTES # (AUTO) 0.4 K/uL (0.8-1.0); MONOCYTES % (AUTO) 4.2 % (1.7-9.3); NEUTROPHILS # (AUTO) 5.8 K/uL (1.8-7.7); NEUTROPHILS % (AUTO) 64.9 % (42.2-75.2); PLATELET COUNT (AUTO) 291 K/uL (140-450); RED BLOOD CELL COUNT(AUTO) 4.73 MIL/uL (4.20-5.40); RED CELL DISTRIBUTION WIDTH 13.9 % (11.6-13.7); WHITE BLOOD COUNT (AUTO) 8.9 K/uL (4.8-10.8)
[2019-08-24] MEDS ORDERED: MULTIVITAMIN-12 10 ML VIAL IV ONE ×2 (03:27→03:46)
[2019-08-24] MEDS ORDERED: FOLIC ACID 5 MG/ML SYR ONE ×2 (03:27→03:46)
[2019-08-24] MEDS ORDERED: THIAMINE 200 MG/2 ML VIAL ONE ×2 (03:27→03:46)
[2019-08-24] MEDS ORDERED: MAG SULF 2000 MG/WATER PREMIX 50 ML IV ONE (03:30)
[2019-08-24 03:31] LABS: ANION GAP 16.7 (8-16); CARBON DIOXIDE 26.5 mmol/L (21-32); CHLORIDE 102 mmol/L (98-107); CREATININE 2.8 mg/dL (0.6-1.3); GFR ARICAN-AMERICAN 22 mL/min (>90); GLUCOSE 175 mg/dL (74-106); POTASSIUM 3.2 mmol/L (3.5-5.1); SODIUM SERUM 142 mmol/L (136-145); UREA NITROGEN, BLOOD 12 mg/dL (7-18)
--- NOTE | 2019-08-24 03:35 | NUR ---
CALLED PT'S DAUGHTER PER PT REQUEST, NO RESPONSE, LEFT A MESSAGE TO PLEASE CALL BACK. JORGE MADE AWARE.
[2019-08-24 03:37] LABS: ALBUMIN 3.9 g/dL (3.4-5.0); ASPARTATE AMINOTRANSFERASE 16 U/L (15-37); SALICYLATE < 2.8 mg/dL (2.8-20.0); TOTAL BILIRUBIN 0.3 mg/dL (0.0-1.0)
[2019-08-24 03:38] LABS: ACETAMINOPHEN < 0.5 ug/ml (10-30)
--- NOTE | 2019-08-24 03:47 | NUR ---
PULLED ONLY ONE VIAL OF MULTI-VITAMIN, RETURNED TO PYXIS. REPULLED APPOPIATELY DOSAGE OF 2 VIALS. Addendum: 08/24/19 at 0648 by [employer] PULLED ONLY ONE VIAL OF MULTI-VITAMIN, RETURNED TO PYXIS. REPULLED APPROPIATE DOSAGE OF 2 VIALS.
[2019-08-24] MEDS ORDERED: KETOROLAC 30 MG/ML VIAL IVP ONE (04:10)
[2019-08-24] MEDS ORDERED: LORazepam 2 MG/ML VIAL IVP ONE (04:10)
--- NOTE | 2019-08-24 04:39 | NUR ---
PATIENT TAKEN TO CT VIA RAY
[2019-08-24 04:42] LABS: BARBITURATE, URINE NEG. ng/ml (NEG <=200); BENZODIAZEPINE, URINE NEG. ng/mL (NEG <=200); CANNABINOID, URINE NEG. ng/mL (NEG <=50); COCAINE, URINE NEG. ng/mL (NEG <=300); OPIATE, URINE NEG. ng/mL (NEG <=2000); PHENCYCLIDINE SCREEN,URINE NEG. ng/mL (NEG <=25)
--- NOTE | 2019-08-24 05:00 | NUR ---
PATIENT BACK FROM CT WITHOUT INCIDENT.
--- NOTE | 2019-08-24 05:58 | NUR ---
PATIENT SEEN WITH EYES CLOSED, VISIBLE CHEST RISE AND FALL NOTED. BREATHING IS UNLABORED. PATIENT CONNECTED TO TELE MONITOR, VSS. FLACC 0. WILL CONTINUE TO MONITOR.
--- NOTE | 2019-08-24 06:20 | NUR ---
ATTEMPTED TO WAKE UP PATIENT. PATIENT IS BARELY AROUSED TO STERNAL RUB, CAN ONLY STATE NAME AND SPEECH IS INCOMPREHENSIBLE. PATIENT UNABLE TO ANSWER QUESTIONS. VSS. EYES PERRL, SLUGGISH 3MM.
--- NOTE | 2019-08-24 06:42 | NUR ---
SPOKE WITH CAROL-CASE MANAGEMENT REGARDING ADMITTING.
[2019-08-24] MEDS ORDERED: TRAZ-343 PO (06:43)
[2019-08-24] MEDS ORDERED: ACAM333T PO (06:43)
[2019-08-24] MEDS ORDERED: MIRT15TA4 PO (06:43)
--- NOTE | 2019-08-24 06:43 | NUR ---
MEDICATION RECONCILATION COMPLETED BASED ON MEDICATION BROUGHT WITH PT FROM HOME. ATTEMPTED TO CALL PT DAUGHTER, DANGELO TO CONFIRM MEDICATION AND THERE WAS NO ANSWER AT THE NUMBER PROVIDED.
[2019-08-24] MEDS ORDERED: MORPHINE SULFATE 4 MG/ML SYR IVP PRN (07:10)
[2019-08-24] MEDS ORDERED: ALBUTEROL 0.083% 2.5 MG/3 ML NEBU INH PRN (07:10)
[2019-08-24] MEDS ORDERED: HYDROcodone/APAP 5/325 MG 1 TAB TAB PO PRN (07:10)
[2019-08-24] MEDS ORDERED: ACETAMINOPHEN 325 MG TAB PO PRN (07:10)
[2019-08-24] MEDS ORDERED: ONDANSETRON 4 MG/2 ML VIAL IVP PRN (07:10)
--- NOTE | 2019-08-24 07:44 | NUR ---
CALLED AND SPOKE TO PATIENT'S DAUGHTER DANGELO AND ADVISED HER OF PATIENT'S ADMISSION TO THE HOSPITAL. PT'S DAUGHTER VERBALIZED UNDERSTANDING. I LET HER KNOW PATIENT WOULD BE GOING TO ROOM 105-B AND SHE COULD CALL TELE TO GET AN UPDATE OR COME TO VISIT HER IN HOSPITAL. DAUGHTER STATES PT HAD HERNIA SURGERY X3 WEEKS AGO.
--- NOTE | 2019-08-24 07:59 | NUR ---
RECEIVED BEDSIDE REPORT FROM ER NURSE.PATIENT IS AWAKE, ALERT AND ORIENTEDX2-3. NO SIGNS OF DISTRESS ON RA. VITALS ARE STABLE. MRSA SWAB DONE. UNABLE TO ASSESS GAIT AT THIS TIME. SKIN IS INTACT. IV ON L AC 22G SL. CLEAN, DRY AND INTACT. BED IN LOW POSITION. CALL LIGHT WITHIN REACH. WILL CONTINUE TO MONITOR THE PATIENT
[2019-08-24 08:14] LABS: PROTHROMBIN TIME 9.7 secs (10.8-13.4)
--- NOTE | 2019-08-24 08:18 | NUR ---
PATIENT HAS BEEN SCREENED AND CATEGORIZED MODERATE NUTRITION RISK. PATIENT WILL BE SEEN WITHIN 3-5 DAYS OF ADMISSION. 08/26/19 08/28/[address]
--- NOTE | 2019-08-24 08:22 | NUR ---
Patient will be admitted to care of DR. RAMOS. Admited to MED SURG. Will go to room 121A. Belongings list completed. Report to GUSTAVO BOOTH. Patients medications were taken to pharmacy.
[2019-08-24 08:30] VITALS: BP 120/51
[2019-08-24] MEDS: QUEtiapine FUMARATE 100 MG TAB PO SCH ×2 (09:16→21:13)
[2019-08-24] MEDS: KCL 20 MEQ/WATER INJ PREMIX 200 ML IV SCH ×2 (09:19→13:45)
[2019-08-24] MEDS: DEXT 5% /NACL 0.9% 1,000 ML IV SCH ×2 (09:20→21:12)
--- NOTE | 2019-08-24 09:32 | NUR ---
ADMINISTERED MEDS. EDUCATED PATIENT ON SIDE EFFECTS. TOLERATED WELL. WILL CONTINUE TO MONITOR THE PATIENT
--- NOTE | 2019-08-24 11:00 | NUR ---
RESTING IN BED NO SIGNS OF DISTRESS
--- NOTE | 2019-08-24 13:45 | NUR ---
ADMINISTERED MEDS. PATIENT TOLERATED WELL. WILL CONTINUE TO MONITOR
--- NOTE | 2019-08-24 14:05 | NUR ---
DC PLANN[age] YRS OLD FEMALE ADMITTED FROM HOME WITH A DX OF HIATAL HERNIA AND ALCOHOL INTOXICATION. PT ALERT AND ORIENTED X 4. ADMINISTERED IVF FOR HYDRATION, PAIN MEDS AND CT OF THE HEAD AND ABD/PELVIS . CM TO FOLLOW Addendum: 08/25/19 at 1607 by Laura Gallegos CM DC PLANNING: PER PHYSICAL THERAPY RECOMMENDATION TO GO TO SNF FOR PT. SPOKE WITH THE PATIENT AND STATED OK TO GO TO AROUND THIS AREA WILL BE OK [facility] OR [facility]. FAXED THE REQUEST TO [facility] WILL AUTHORIZE TO THE ACCEPTED FACILITY . FAXED ALL THE PAPER WORK TO [facility] AND [facility] .CM TO FOLLOW Addendum: 08/26/19 at 1224 by Laura Gallegos CM DC PLANNING: [facility] VISITED PT AND ACCEPTED HER , AUTH # FROM [facility] [id number] AND FOR TRANSPORT [id number] WAITING FOR ROOM NUMBER FROM LARISSA MCCOLLUM TO FOLLOW Addendum: 08/26/19 at 1333 by Laura Gallegos CM DC PLANNING PT IS GOING TO ROOM 3A AT [facility] # TO GIVE REPORT [phone] ARRANGED TRANSPORT WITH [facility] DUTY MANAGER TIME 6PM NOTIFIED CESAR CHEN
--- NOTE | 2019-08-24 14:15 | NUR ---
PCP Appointment: NIDHI contacted Munira from Dr. Ben James's office. NIDHI scheduled hospital follow up appointment at 2:30PM on 08/31/2019 @ [address] [facility] [address] [place] [address]. NIDHI left appointment slip in patient's chart to be given at discharge.
--- NOTE | 2019-08-24 15:00 | NUR ---
PATIENT MOANING IN BED, IV MEDICATION ADMINISTERED WITHOUT DISTRESS. WILL CONTINUE TO MONITOR FOR SAFETY. CALL LIGHT AT BEDSIDE.
[2019-08-24 16:00] VITALS: BP 105/48
--- NOTE | 2019-08-24 17:00 | NUR ---
PATIENT IN BED RESTING, NO SIGNS OF DISTRESS.
--- NOTE | 2019-08-24 19:10 | NUR ---
REPORT GIVEN TO ONCOMING NIGHT RN FOR CONTINUITY OF CARE, PATIENT IN STABLE CONDITION, SLEEPING WITH BED ALARM/IV PUMP ALARM ON.
--- NOTE | 2019-08-24 19:15 | NUR ---
RECEIVED REPORT FROM AM SHIFT NURSE. PATIENT ASLEEP AT THIS TIME. WITH LEFT AC G22 RUNNING IVF. NO APPARENT DISTRESS NOTED. VISIBLE CHEST RISE AND FALL NOTED. BED ALARM ON. BED ON LOW POSITION. CALL LIGHT WITHIN REACH. WILL CONTINUE TO MONITOR.
[2019-08-24] MEDS: traZODone 50 MG TAB PO SCH (21:13)
[2019-08-24] MEDS: MIRTAZAPINE 15 MG TAB PO SCH (21:13)
--- NOTE | 2019-08-24 21:15 | NUR ---
DUE MEDICATIONS GIVEN ORDERED. BED ON LOW POSITION. BED ALARM ON. CALL LIGHT WITHIN REACH. WILL CONTINUE TO MONITOR.
[2019-08-24] MEDS: LORazepam 2 MG/ML VIAL IVP PRN (21:26)
--- NOTE | 2019-08-24 23:10 | NUR ---
ASSISTED PATIENT TO THE BATHROOM AND ASSISTED BACK TO BED. BED ON LOW POSITION. BED ALARM ON. CALL LIGHT WITHIN REACH. WILL CONTINUE TO MONITOR.
[2019-08-25] VITALS: BP 100/66
--- NOTE | 2019-08-25 00:10 | NUR ---
PIV NOTED DISLODGED. ATTEMPTED TO RE-INSERT IV ON UPPER EXTREMITIES BUT UNSUCCESSFUL. CALLED DR. RAMOS TO GET AN ORDER TO INSERT ON FOOT. MD AGREED. RE-INSERTED 24G ON LEFT FOOT.
[2019-08-25] MEDS: LORazepam 2 MG/ML VIAL IVP PRN ×2 (00:16→18:31)
--- NOTE | 2019-08-25 01:55 | NUR ---
PATIENT ASLEEP AT THIS TIME. NO APPARENT DISTRESS NOTED. BED ON LOW POSITION. CALL LIGHT WITHIN REACH. BED ALARM ON. WILL CONTINUE TO MONITOR.
--- NOTE | 2019-08-25 03:55 | NUR ---
PATIENT ASLEEP IN BED. NO APPARENT DISTRESS NOTED. WILL CONTINUE TO MONITOR.
[2019-08-25] MEDS: DEXT 5% /NACL 0.9% 1,000 ML IV SCH ×2 (04:38→14:21)
[2019-08-25] MEDS: LEVOTHYROXINE 0.075 MG TAB PO SCH (05:50)
--- NOTE | 2019-08-25 05:55 | NUR ---
PATIENT ASLEEP IN BED. NO APPARENT DISTRESS NOTED. BED ON LOW POSITION. BED ALARM ON. WILL CONTINUE TO MONITOR.
[2019-08-25 06:19] LABS: BASOPHILS % (AUTO) 0.5 % (0.0-2.0); EOSINOPHILS % (AUTO) 0.1 % (0.0-4.0); HEMATOCRIT 40.5 % (36-48); HEMOGLOBIN 13.1 g/dL (12.0-16.0); LYMPHOCYTES # (AUTO) 3.6 K/uL (2.5-16.5); LYMPHOCYTES % (AUTO) 37.5 % (20.5-51.1); MEAN CORPUSCULAR HEMOGLOBIN 29 pg (27-31); MEAN CORPUSCULAR HGB CONC 32 g/dL (33-37); MEAN CORPUSCULAR VOLUME 89.1 fL (80-94); MONOCYTES # (AUTO) 0.7 K/uL (0.8-1.0); MONOCYTES % (AUTO) 7.8 % (1.7-9.3); NEUTROPHILS # (AUTO) 5.2 K/uL (1.8-7.7); NEUTROPHILS % (AUTO) 54.1 % (42.2-75.2); PLATELET COUNT (AUTO) 223 K/uL (140-450); RED BLOOD CELL COUNT(AUTO) 4.55 MIL/uL (4.20-5.40); RED CELL DISTRIBUTION WIDTH 14.5 % (11.6-13.7); WHITE BLOOD COUNT (AUTO) 9.5 K/uL (4.8-10.8)
--- NOTE | 2019-08-25 07:00 | NUR ---
ENDORSED TO AM SHIFT NURSE IN STABLE CONDITION FOR CONTINUITY OF CARE.
--- NOTE | 2019-08-25 07:03 | NUR ---
PATIENT ASLEEP IN BED. VISIBLE CHEST RISE AND FALL. NO APPARENT DISTRESS NOTED. BED ON LOW POSITION. BED ALARM ON. CALL LIGHT WITHIN REACH. WILL CONTINUE TO MONITOR.
--- NOTE | 2019-08-25 07:05 | NUR ---
RECEIVED REPORT FROM INCLUSION SPECIAL EDUCATION TEACHER NURSE. PT AROUSABLE TO NAME, ORIENTED X2. RESPIRATIONS EVEN AND UNLABORED ON RA. IV ON LT FOOT 24 GA RUNNING IVF PER ORDER. ABD SOFT, ACTIVE BS. SKIN IS INTACT, WARM TO TOUCH. PT IS ON FALL RISK PRECAUTIONS, SAFETY MEASURES IN PLACE, CALL LIGHT WITHIN REACH. REVIEWED POC WITH PT, PT WILL NEED REINFORCEMENT.
[2019-08-25 08:00] VITALS: BP 135/73
--- NOTE | 2019-08-25 09:05 | NUR ---
PT IS DROWSY, REFUSED TO TAKE SEROQUEL AT THIS TIME. SLEEPING WITH NO SIGNS OF DISTRESS.
[2019-08-25] MEDS: QUEtiapine FUMARATE 100 MG TAB PO SCH ×2 (10:41→20:06)
--- NOTE | 2019-08-25 10:41 | NUR ---
PT IS DROWSY, RESPIRATIONS EVEN AND UNLABORED ON RA. PER DR. RAMOS, OK TO HOLD SEROQUEL AT THIS TIME. NO NEW ORDERS RECEIVED.
--- NOTE | 2019-08-25 13:00 | NUR ---
PT IS RESTING IN SUPINE POSITION, PT HAS NO SIGNS OF DISTRESS AT THIS TIME.
[2019-08-25 14:43] LABS: ANION GAP 11.9 (8-16); CARBON DIOXIDE 28.1 mmol/L (21-32)
[2019-08-25 14:46] LABS: MAGNESIUM 2.5 mg/dL (1.8-2.4); PHOSPHORUS 3.2 mg/dL (2.5-4.9)
--- NOTE | 2019-08-25 15:20 | NUR ---
PT RESTING IN BED ON LEFT LATERAL POSITION, RESPIRATIONS EVEN AND UNLABORED ON RA.
--- NOTE | 2019-08-25 15:50 | NUR ---
PT HAD ONE EPISODE OF BOWEL MOVEMENT. PT LINENS CHANGED AND GIVEN CLEAN GOWN. SKIN AND JOCELYN CARE DONE.
[2019-08-25 16:00] VITALS: BP 124/62
--- NOTE | 2019-08-25 18:31 | NUR ---
PT CRYING IN BED SAYING "I NEED TO SLEEP", PT GIVEN ATIVAN PER ORDER FOR ANXIETY. WILL REASSESS WITHIN 1 HOUR.
--- NOTE | 2019-08-25 19:10 | NUR ---
ENDORSED PT TO STOCK ASSOCIATE NURSE FREDDIE. PT IS ASLEEP, HAS NO SIGNS OF DISTRESS AT THIS TIME.
--- NOTE | 2019-08-25 19:11 | NUR ---
REPORT RECEIVED FROM AM NURSE AT BEDSIDE. PT IN STABLE CONDITION. AAOX2-3. INTRODUCED SELF TO PT. BOARD UPDATED. NO COMPLAINTS OF PAIN. NO SOB. AFEBRILE. PT IS AMBULATORY WITH ASSIST. PT HAS BEDSIDE COMMODE. IV SITE L FOOT 24G RUNNING D5NS@100ML/HR PATENT AND INTACT. SKIN WARM, DRY, AND INTACT WITH NO OPEN WOUNDS. BED LOCKED IN LOW POSITION. CALL RG WITHIN REACH. SAFETY PRECAUTION IN PLACE. ALL NEEDS MET AT THIS TIME.
[2019-08-25] MEDS: traZODone 50 MG TAB PO SCH (20:06)
[2019-08-25] MEDS: MIRTAZAPINE 15 MG TAB PO SCH (20:06)
--- NOTE | 2019-08-25 20:06 | NUR ---
DESYREL, REMERON, AND SEROQUEL GIVEN PO. PT TOLERATED WELL.
--- NOTE | 2019-08-25 22:00 | NUR ---
PT SLEEPING COMFORTABLY BUT AROUSABLE. NO S/S OF DISTRESS NOTED. WILL CONTINUE TO MONITOR.
--- NOTE | 2019-08-25 23:45 | NUR ---
PT REMOVED IV ACCIDENTALLY. WILL PLACE NEW IV.
[2019-08-26] VITALS: BP 136/69
--- NOTE | 2019-08-26 | NUR ---
NEW IV L WRIST 24G. 3 ATTEMPTS. CANNULA INTACT.
[2019-08-26] MEDS: LORazepam 2 MG/ML VIAL IVP PRN ×2 (00:03→14:13)
--- NOTE | 2019-08-26 00:03 | NUR ---
ATIVAN GIVEN FOR ANXIETY AND AGITATION. PT TOLERATED WELL.
[2019-08-26] MEDS: DEXT 5% /NACL 0.9% 1,000 ML IV SCH ×2 (00:16→10:00)
--- NOTE | 2019-08-26 01:21 | NUR ---
PT SLEEPING COMFORTABLY BUT AROUSABLE. NO S/S OF DISTRESS NOTED. NO COMPLAINTS OF PAIN. NO SOB. AFEBRILE. WILL CONTINUE TO MONITOR.
--- NOTE | 2019-08-26 03:20 | NUR ---
PT SLEEPING COMFORTABLY BUT AROUSABLE. NO S/S OF DISTRESS NOTED. RESPIRATIONS EVEN, UNLABORED, AND WNL. WILL CONTINUE TO MONITOR.
[2019-08-26] MEDS: LEVOTHYROXINE 0.075 MG TAB PO SCH (05:31)
--- NOTE | 2019-08-26 05:31 | NUR ---
SYNTHROID GIVEN PO. PT TOLERATED WELL.
[2019-08-26 06:15] LABS: BASOPHILS # (AUTO) 0.1 K/uL (0.00-0.22); BASOPHILS % (AUTO) 1.9 % (0.0-2.0); EOSINOPHILS # (AUTO) 0.1 K/uL (0-0.4); EOSINOPHILS % (AUTO) 1.3 % (0.0-4.0); HEMATOCRIT 35.7 % (36-48); HEMOGLOBIN 11.8 g/dL (12.0-16.0); LYMPHOCYTES # (AUTO) 2.2 K/uL (2.5-16.5); LYMPHOCYTES % (AUTO) 55.8 % (20.5-51.1); MEAN CORPUSCULAR HEMOGLOBIN 29 pg (27-31); MEAN CORPUSCULAR HGB CONC 33 g/dL (33-37); MONOCYTES # (AUTO) 0.3 K/uL (0.8-1.0); MONOCYTES % (AUTO) 6.5 % (1.7-9.3); NEUTROPHILS # (AUTO) 1.4 K/uL (1.8-7.7); NEUTROPHILS % (AUTO) 34.5 % (42.2-75.2); PLATELET COUNT (AUTO) 210 K/uL (140-450); RED BLOOD CELL COUNT(AUTO) 4.06 MIL/uL (4.20-5.40); RED CELL DISTRIBUTION WIDTH 14.3 % (11.6-13.7); WHITE BLOOD COUNT (AUTO) 3.9 K/uL (4.8-10.8)
[2019-08-26 06:33] LABS: ANION GAP 11.6 (8-16); CREATININE 1.7 mg/dL (0.6-1.3); POTASSIUM 3.6 mmol/L (3.5-5.1)
--- NOTE | 2019-08-26 06:50 | NUR ---
PT SLEEPING COMFORTABLY BUT AROUSABLE. PT IN STABLE CONDITION.
[2019-08-26 06:52] LABS: MAGNESIUM 2.2 mg/dL (1.8-2.4); PHOSPHORUS 3.3 mg/dL (2.5-4.9)
--- NOTE | 2019-08-26 07:10 | NUR ---
RECEIVED REPORT FROM PM NURSE. PT IS ASLEEP IN BED. RESPIRATION ARE EVEN AND UNLABORED.
[2019-08-26 08:26] VITALS: BP 119/68
[2019-08-26] MEDS: QUEtiapine FUMARATE 100 MG TAB PO SCH (09:39)
--- NOTE | 2019-08-26 09:55 | NUR ---
PT IS ASLEEP IN BED. IV RUNNING 1OOML/HR. RESPIRATION ARE EVEN AND UNLABORED.
--- NOTE | 2019-08-26 11:36 | NUR ---
PT IS ASLEEP IN BED. RESPIRATIONS ARE EVEN AND UNLABORED.
--- NOTE | 2019-08-26 12:30 | NUR ---
PT IS AWAKE. IV INFILTRATED. IV FLUIDS STOP. LEFT HAND HAS WARM COMPRESS ON AND IS ELEVATED WITH A TOWEL.
--- NOTE | 2019-08-26 14:30 | NUR ---
PT IN BED ASLEEP. RESPIRATIONS ARE EVEN AND UNLABORED. CALL LIGHT WITHIN REACH. PT HAS HER BELONGING BAG ON HER PERSON.
[2019-08-26 16:00] VITALS: BP 132/69
--- NOTE | 2019-08-26 16:32 | NUR ---
DOING DISCHARGE ORDERS FOR PT. TRIED CALLING THE PT NOTIFY PERSON ON FILE, BUT BOTH NUMBERS ON FILE WERE WRONG. ONE NUMBER WAS FOR A DIFFERENT PERSON AND THE OTHER NUMBER DID NOT CLINICAL SAFETY MANAGER. ASKED THE PT FOR A CORRECT PHONE NUMBER FOR PERSON TO NOTIFY, DANGELO, PT'S PHONE IS NOT CHARGED. PT IS CURRENTLY CHARGING HER PHONE NUMBER AND WILL COLLECT CONTACT NUMBER FOR DANGELO LATER.
--- NOTE | 2019-08-26 17:30 | NUR ---
Pt crying, stating she doesn't want to go to SNF because no one will take care of her dogs at home. Explained pt will continue with PT for safety. Asked pt to repeat statement, but pt said her head feels foggy and she is a bit confused. Asked pt if she has updated contact info for her daughter. Pt states she doesn't want to contact her daughters at all but gave contact info for Miguelangel Patel, pt's daughter's [id number], instead ([phone]). Admitting notified to update contact list. Spoke to Miguelangel on speakerphone with pt & notified of discharge plan to SNF, verbalized understanding & agree with POC. Miguelangel spoke with pt & gave reassurance that her friend Kimmy is taking care of the dogs at home. Pt able to relax and agree with transfer as scheduled.
--- NOTE | 2019-08-26 18:15 | NUR ---
PT DISCHARGED TO [facility]. PT PICKED UP BY TRANSPORT. PT IS STABLE. PT TOOK ALL BELONGING WITH HER.
--- NOTE | 2019-08-26 19:20 | NUR ---
CALLED [facility] AND INFORMED THEM PT HAD A FOLLOW UP APPT AT 08/31/19 AT 2:30PM WITH DR. ALESSIO PATEL. AT [address] [facility], [place] [address]. PHONE NUMBER [phone]
== END 2019-08-26 16:10 | DRG 254 ==
LOC: MED 02:40 → MTU 07:07
PROVIDERS: ADMIT Internal Medicine Pulmonary Disease; ATTEND Internal Medicine Pulmonary Disease
DX: K44.9 Diaphragmatic hernia without obstruction or gangrene (principal); F10.121 Alcohol abuse with intoxication delirium; E66.01 Morbid (severe) obesity due to excess calories; E03.9 Hypothyroidism, unspecified; E87.6 Hypokalemia; Y90.0 Blood alcohol level of less than 20 mg/100 ml; E86.0 Dehydration; E11.9 Type 2 diabetes mellitus without complications; I10 Essential (primary) hypertension; Z79.82 Long term (current) use of aspirin; Z79.899 Other long term (current) drug therapy; Z68.38 Body mass index [BMI] 38.0-38.9, adult
CPT/HCPCS: 36415; 36600; 70450; 80048; 80053; 80305; 82803; 83735; 84100; 84484; 85025; 85610; 85730; 87081; 93005; 96365; 96366; 96375; 97116; 97161-GP; 97530; 99285; A9153; G0480; G0482; J1885; J2060; J2405; J3411; J3475; J3480; J3490; J7042

== ENCOUNTER 2019-12-14 18:59 | Emergency (ER) | payer OTHER ==
[~2019-12-14] VITALS: Ht 160 cm; Wt 103.4 kg
[~2019-12-14 18:59] MED LIST changes: +ACAM333T PO; -ATOR20TA40 PO; -CALC-55 PO; -FOLI1TAB90 PO; -GLU500 PO; -LIB25 PO; -LISI-420 PO; -LORA-476 PO; +MIRT15TA4 PO; -MULT-405 PO; -THIA-34 PO; +TRAZ-343 PO
[2019-12-14 19:09] VITALS: BP 127/76
--- NOTE | 2019-12-14 19:20 | NUR ---
BIBA WITH REPORTS OF HEAVY DRINKING AND NOT TAKING ANXIETY OR HTN MEDICATIONS SINCE FRIDAY. PATIENT STATING SEVERE ANXIETY. STATES ABD DISCOMFORT AND NAUSEA, NO VOMITING REPORTED. PATIENT LAYING IN BED, FRIENDS AT BEDSIDE.
--- NOTE | 2019-12-14 19:24 | NUR ---
DR FRANCOIS AT BEDSIDE.
[2019-12-14] MEDS ORDERED: NACL 0.9% 1,000 ML IV ONE (19:35)
--- NOTE | 2019-12-14 19:46 | NUR ---
20G IV STARTED IN LAC, LABS COLLECTED AND SENT TO LAB. BOLUS STARTED AND RUNNING.
--- NOTE | 2019-12-14 20:02 | NUR ---
URINE COLLECTED. Addendum: 12/14/19 at 2001 by SIMBA PATIENT AMB TO RESTROOM TO GIVE URINE SAMPLE.
[2019-12-14 20:10] LABS: BASOPHILS # (AUTO) 0.1 K/uL (0.00-0.22); BASOPHILS % (AUTO) 1.6 % (0.0-2.0); EOSINOPHILS % (AUTO) 0.6 % (0.0-4.0); HEMOGLOBIN 13.3 g/dL (12.0-16.0); LYMPHOCYTES % (AUTO) 58.1 % (20.5-51.1); MEAN CORPUSCULAR HEMOGLOBIN 29 pg (27-31); MEAN CORPUSCULAR HGB CONC 33 g/dL (33-37); MEAN CORPUSCULAR VOLUME 87.3 fL (80-94); MONOCYTES # (AUTO) 0.2 K/uL (0.8-1.0); MONOCYTES % (AUTO) 4.6 % (1.7-9.3); NEUTROPHILS # (AUTO) 1.8 K/uL (1.8-7.7); NEUTROPHILS % (AUTO) 35.1 % (42.2-75.2); PLATELET COUNT (AUTO) 224 K/uL (140-450); RED BLOOD CELL COUNT(AUTO) 4.58 MIL/uL (4.20-5.40); RED CELL DISTRIBUTION WIDTH 14.2 % (11.6-13.7); WHITE BLOOD COUNT (AUTO) 5.2 K/uL (4.8-10.8)
[2019-12-14 20:34] LABS: ALBUMIN 3.9 g/dL (3.4-5.0); ANION GAP 13.6 (8-16); ASPARTATE AMINOTRANSFERASE 19 U/L (15-37); CARBON DIOXIDE 30.7 mmol/L (21-32); CHLORIDE 105 mmol/L (98-107); CREATININE 0.9 mg/dL (0.6-1.3); GFR ARICAN-AMERICAN 81 mL/min (>90); GLUCOSE 94 mg/dL (74-106); POTASSIUM 3.3 mmol/L (3.5-5.1); SALICYLATE < 2.8 mg/dL (2.8-20.0); SODIUM SERUM 146 mmol/L (136-145); TOTAL BILIRUBIN 0.4 mg/dL (0.0-1.0); UREA NITROGEN, BLOOD 11 mg/dL (7-18)
[2019-12-14 20:35] LABS: ACETAMINOPHEN < 0.5 ug/ml (10-30)
[2019-12-14 21:01] LABS: BARBITURATE, URINE NEGATIVE ng/ml (NEG <=200); BENZODIAZEPINE, URINE NEGATIVE ng/mL (NEG <=200); COCAINE, URINE NEGATIVE ng/mL (NEG <=300)
[2019-12-14 21:02] LABS: CANNABINOID, URINE NEGATIVE ng/mL (NEG <=50); OPIATE, URINE NEGATIVE ng/mL (NEG <=2000); PHENCYCLIDINE SCREEN,URINE NEGATIVE ng/mL (NEG <=25)
--- NOTE | 2019-12-14 21:38 | NUR ---
PATIENT CALLING FRIEND ON CELL PHONE FOR A RIDE HOME. WILL DISCHARGE WHEN FRIEND ARRIVES.
[2019-12-14 22:15] VITALS: BP 121/64
--- NOTE | 2019-12-14 22:17 | NUR ---
Patient discharged with v/s stable. Written and verbal after care instructions given and explained. Patient verbalized understanding. Ambulatory with steady gait escorted by friends. All questions addressed prior to discharge. Advised to follow up with PMD.
== END 2019-12-14 22:15 | disposition home or self-care (01) ==
LOC: MED 18:59
DX: F10.129 Alcohol abuse with intoxication, unspecified (principal); R11.0 Nausea; I10 Essential (primary) hypertension; E03.9 Hypothyroidism, unspecified; F41.9 Anxiety disorder, unspecified; Z98.890 Other specified postprocedural states; Z79.82 Long term (current) use of aspirin; Z79.899 Other long term (current) drug therapy
CPT/HCPCS: 36415; 80053; 80305; 85025; 99283; G0480; G0482; J7030